=== PATIENT | female | born 1955 | race Caucasian/White ===

== ENCOUNTER 2019-11-09 23:50 | Inpatient (IN) ==
[2019-11-10 00:04] VITALS: BMI 37.0
[2019-11-10] MEDS ORDERED: SOLU-Medrol 125 MG VIAL IVP ONE (01:16)
[2019-11-10] MEDS ORDERED: DUONEB 0.5 MG/3 MG (3 mL) NEB ONE ×4 (01:16→05:42)
--- NOTE | 2019-11-10 01:16 | DR.GENAD ---
HPI - PCP Primary Care Physician: SAVAGE SELF - Complaint/Symptoms Chief Complaint Doctors Comments: Patient is complaining of problems breathing with a cold, cough, wheezing with SOB for the past four weeks getting progressively worst. States she has been taking inhalers and nebulizers at home without improvement. She is a patient of Dr. Self in [place]. States she smokes one pack cigarettes daily but denies alcohol or drug usage. She has been having xiphoid chest pain that is sharp, non-radiating. she denies diarrhea, dysuria, hematuria or [place]. She has a nebulizer and inhaler at home but states she do not have home oxygen. She is not a diabetic. Chief Complaint:: COUGH - NONPRODUCTIVE; SHORTNESS OF BREATH; PATIENT HAS BEEN TAKING CEFDINIR PER PCP WITHOUT RELIEF; PATIENT IS A SMOKER AND HAS HX OF COPD - Nurses notes reviewed Nurses Notes Review: Yes - Source History Provided: Patient - Mode of Arrival Mode of Arrival: Ambulatory - Timing Onset of Chief Complaint: 11/04/19 Came on: Gradually - Duration Duration: Intermittent How lon Duration: Weeks - Location Location: xiphoid chest pain - Severity Severity: Moderate - Modifying Factors Worsens:: cough Improves:: nothing PMH - PMH Past Medical History: Yes Past Medical History: Anxiety, COPD, Coronary Artery Disease Past Medical History Comment: A-FIB Past Surgical History: No - Family History History of Family Medical Conditions: No Family Medical History: Cancer, Heart Failure, Hypertension - Social History Alcohol Use: None Do you use any recreational Drugs:: No Lives With: Spouse Lives Where: Home - infectious screening In the last 2 months have you had wt loss of >10#?: NO Have you had fever, night sweats or hemotysis?: No Have you traveled outside the country in the last 6 months?: No Isolation: Standard ROS - Review of Systems Constitutional: No Symptoms Reported, Weakness Eyes: No Symptoms Reported ENTM: No Symptoms Reported Respiratoy: Productive Cough, Short of Breath, Wheezing Cardiovascular: No Symptoms Reported, Chest Pain. negative: See HPI, Edema, Palpitations, Syncope, Cyanosis, Skin Mottling, Other Gastrointestinal/Abdominal: No Symptoms Reported. negative: See HPI, Abdominal Pain, Constipation, Diarrhea, Nausea, Vomiting, Food Intolerance, Other Genitourinary: No Symptoms Reported Neurological: No Symptoms Reported Musculoskeletal: No Symptoms Reported Integumentary: No Symptoms Reported Hematologic/Lymphatic: No Symptoms Reported Endocrine: No Symptoms Reported Psychiatric: No Symptoms Reported. negative: See HPI, Anxiety, Depression, Hallucinations, Excessive crying, Suicidal, Other PE - General Limitations: No Limitations General Appearance: Alert, In Distress (moderate) - Head Head Exam: Normal Inspection, Atraumatic, Normocephalic - Eyes Eye exam: Normal Appearance, PERRL, EOMI. negative: Scleral Icterus, Conjunctival Injection, Nystagmus, Miosis, Mydrasis, Periorbital Swelling, Periorbital Tenderness, Other - ENT ENT Exam: Normal Exam, Normal Oropharynx, Normal External Ear Exam, Mucous Membranes Moist, TM's Normal Bilaterally External Ear Exam: Normal External Inspection TM/Canal Exam: Bilateral Normal Nose Exam: Normal Nose Exam Mouth Exam: Normal Inspection. negative: Drooling, Trismus, Lip Swelling, Tongue Elevation, Tongue Swelling, Laceration, Other Throat Exam: Normal Inspection. negative: Tonsillar Erythema, Tonsillomegaly, Tonsillar Exudate, R Peritonsillar Mass, L Peritonsillar Mass, Muffled Voice, Other - Neck Neck Exam: Normal Inspection, Full ROM, Trachea Midline - Chest Chest Inspection: Normal Inspection, Symmetric Chest Wall Rise. negative: Tenderness, Rash, Abscess, Other - Respiratory Respiratory Exam: Prolonged Expiratory Phase Respiratory Exam: Bilateral Wheezing, Left Rales - Cardiovascular Cardiovascular Exam: Regular Rate, Normal Rhythm, Normal Heart Sounds, Systolic Murmur - Abdominal Exam Abdominal Exam: Normal Inspection, Normal Bowel Sounds, Soft. negative: Distention, Tenderness, Guarding, Rebound, Rigidity, Dimnished Bowel Sounds, Hyperactive Bowel Sounds, Hypoactive Bowel Sounds, Organomegaly, Trauma, Incision, Ascites, Mass, Bruit, Pulsatile Mass, Hernia, Other Abdominal Tenderness: negative: RUQ, RLQ, LUQ, LLQ, Epigastrium, Suprapubic, Diffuse, Mild, Moderate, Severe, Other - Extremities Extremities Exam: Normal Inspection, Full ROM, Normal Capillary Refill. negative: Tenderness, Edema, Joint Swelling, Calf Tenderness, Other - Back Back Exam: Normal Inspection, Full ROM. negative: Tenderness, (R) CVA Tenderness, (L) CVA Tenderness, Muscle Spasm, Paraspinal Tenderness, Vertebral Tenderness, Rashes, (R) Sciatic Notch Tenderness, (L) Sciatic Notch Tendern, (R) Straight Leg Raise, (L) Straight Leg Raise, Other - Neurologic Neurological Exam: Alert, Oriented X3, CN II-XII Intact, Normal Gait, Reflexes Normal - Psychiatric Psychiatric Exam: Normal Affect, Normal Mood. negative: Depressed, Agitated, Anxious, Flat Affect, Manic, Homicidal Ideation, Suicidal Ideation, Other - Skin Skin Exam: Warm, Dry, Intact, Normal Color. negative: Rash, Cyanosis, D iaphoresis, Erythema, Pallor, Mottled, Other - Vital Signs Vitals: Temperature 98.2 F Pulse Rate [Left Brachial] 70 Pulse Rate 68 Respiratory Rate 18 Blood Pressure [Left Arm] 124/58 Blood Pressure 124/58 O2 Sat by Pulse Oximetry 91 ROR - Labs Reviewed Laboratory Results Reviewed?: Yes (All labs and x-ray results reviewed and discussed with patient) Result Diagrams: 11/10/19 01:29 11/10/19 01: - XRAY XRAY Interpreted by: Radiologist (CXR: Mild bronchitis with COPD and cardiomegaly) - EKG Rate: 64 Walls: Normal Rhythm: NSR Block: None Hypertrophy: None ST: Old, Ant, Infarct - Labs Reviewed Laboratory: WBC 15.6 X10^3/uL (3.6-10.0) H 11/10/19 01: RBC 4.91 X10^6/uL (3.5-5.4) 11/10/19 01: Hgb 13.2 g/dL (12.0-16.0) 11/10/19 01: Hct 40.2 % (36.0-47.0) 11/10/19 01: MCV 81.9 fL (80.0-100.0) 11/10/19 01: MCH 27.0 pg (27.0-34.0) 11/10/19 01: MCHC 32.9 g/dL (33.0-35.0) L 11/10/19: RDW 15.1 % (11.6-16.5) 11/10/19 01: Plt Count 246 X10^3/uL (150.0-450.0) 11/10/19 01: MPV 9.1 fL (7.4-11.0) 11/10/19 01: Neut % (Auto) 77.7 % (42.0-75.0) H 11/10/19 01: Lymph % (Auto) 17.6 % (21.0-51.0) L 11/10/19 01: [place] % (Auto) 3.2 % (0.0-13.0) 11/10/19 01: Eos % (Auto) 0.7 % (0.9-2.9) L 11/10/19 01: Baso % (Auto) 0.8 % (0.2-1.0) 11/10/19 01: Neut # (Auto) 12.1 x10^3/uL (2.2-4.8) H 11/10/19 01: Lymph # (Auto) 2.8 X10^3/uL (1.3-2.9) 11/10/19 01: [place] # (Auto) 0.5 x10^3/uL (0.3-0.8) 11/10/19 01: Eos # (Auto) 0.1 x10^3/uL (0.0-0.2) 11/10/19 01: Baso # (Auto) 0.1 X10^3/uL (0.0-0.1) 11/10/19 01: Absolute Nucleated RBC 0.0 /100WBC 11/10/19 01: PT 12.1 SECONDS (11.8-14.3) 11/10/19 01: INR Target Range - 11/10/19 01: INR 0.93 (0.8-1.3) 11/10/19 01: APTT 29.7 SECONDS (22.9-36.5) 11/10/19 01: PTT Comment - 11/10/19 01: D-Dimer < 100 ng/mL (0-400) 11/10/19 01: Sodium 140 mmol/L (136-145) 11/10/19 01: Corrected Sodium 140 mmol/L (136-145) 11/10/19 01: Potassium 3.6 mmol/L (3.5-5.1) 11/10/19 01: Chloride 105 mmol/L (98-107) 11/10/19 01: Carbon Dioxide 26.2 mmol/L (21-32) 11/10/19 01:29 BUN 18 mg/dL (7-18) 11/10/19 01:29 Creatinine 1.51 mg/dL (0.55-1.02) H 11/10/19 01:29 Est GFR (MDRD) Af Amer 45 (>60) L 11/10/19 01:29 Est GFR (MDRD) Non-Af 37 (>60) L 11/10/19 01:29 Glucose 119 mg/dL (65-99) H 11/10/19 01:29 Calcium 9.8 mg/dL (8.5-10.1) 11/10/19 01:29 Corrected Calcium TNP 11/10/19 01:29 Magnesium 1.9 mg/dL (1.7-2.9) 11/10/19 01:29 Total Bilirubin 0.20 mg/dL (0.2-1.0) 11/10/19 01:29 AST 13 Units/L (15-37) L 11/10/19 01:29 ALT 22 Units/L (12-78) 11/10/19 01:29 Alkaline Phosphatase 120 Units/L (46-116) H 11/10/19 01:29 Creatine Kinase 49 Units/L (26-192) 11/10/19 01:29 CK-MB (CK-2) 1.3 ng/mL (0-4.0) 11/10/19 01:29 CK/CKMB % Calc 2.7 % (<4) 11/10/19 01:29 Troponin I < 0.02 ng/mL (0-1.5) 11/10/19 01:29 Total Protein 7.1 g/dL (6.4-8.2) 11/10/19 01:29 Albumin 3.7 g/dL (3.4-5.0) 11/10/19 01:29 Globulin 3.4 g/dL (2.5-4.5) 11/10/19 01:29 Albumin/Globulin Ratio 1.1 Ratio (1.1-2.1) 11/10/19 01:29 Opioid - Opioid Risk Tool Total: 0 Total Score Risk Category: Low Risk - Diagnosis Discharge Problem: COPD with acute exacerbation, Cardiomegaly, Hypoxemia requiring supplemental oxygen, Hyperglycemia Bronchitis, acute Qualifiers: Bronchitis organism: other organism Qualified Code(s): J20.8 - Acute bronchitis due to other specified organisms Chronic kidney disease (CKD) Qualifiers: Chronic kidney disease stage: stage 3 (moderate) Qualified Code(s): N18.3 - Chronic kidney disease, stage 3 (moderate) - Discharge Plan Disposition: 09 ADMITTED INPATIENT Condition: Stable - Follow ups/Referrals Follow ups/Referrals: SAVAGE SELF [Primary Care Provider] - 3 days - Instructions
[2019-11-10] MEDS ORDERED: LEVSIN/MAALOX/LIDOC VISC PO ONE (01:17)
[2019-11-10] MEDS ORDERED: NS 1000 ML 1,000 ML ONE (01:22)
[2019-11-10] MEDS ORDERED: LEVSIN/MAALOX/LIDOC VISC ONE (01:22)
[2019-11-10] MEDS ORDERED: SOLU-Medrol 125 MG VIAL ONE (01:22)
[2019-11-10] MEDS: NS 1000 ML 1,000 ML IV SCH ×3 (01:36→23:05)
[2019-11-10 01:37] LABS: BASOPHILS # (AUTO) 0.1 X10^3/uL (0.0-0.1); BASOPHILS % (AUTO) 0.8 % (0.2-1.0); EOSINOPHILS # (AUTO) 0.1 x10^3/uL (0.0-0.2); EOSINOPHILS % (AUTO) 0.7 % (0.9-2.9); HEMATOCRIT 40.2 % (36.0-47.0); HEMOGLOBIN 13.2 g/dL (12.0-16.0); LYMPHOCYTES # (AUTO) 2.8 X10^3/uL (1.3-2.9); LYMPHOCYTES % (AUTO) 17.6 % (21.0-51.0); MEAN CORPUSCULAR HGB CONC 32.9 g/dL (33.0-35.0); MEAN CORPUSCULAR VOLUME 81.9 fL (80.0-100.0); MEAN PLATELET VOLUME 9.1 fL (7.4-11.0); MONOCYTES # (AUTO) 0.5 x10^3/uL (0.3-0.8); MONOCYTES % (AUTO) 3.2 % (0.0-13.0); NEUTROPHILS # (AUTO) 12.1 x10^3/uL (2.2-4.8); NEUTROPHILS % (AUTO) 77.7 % (42.0-75.0); PLATELET COUNT 246 X10^3/uL (150.0-450.0); RED BLOOD COUNT 4.91 X10^6/uL (3.5-5.4); RED CELL DISTRIBUTION WIDTH 15.1 % (11.6-16.5); WHITE BLOOD COUNT 15.6 X10^3/uL (3.6-10.0)
[2019-11-10 01:53] LABS: BLOOD UREA NITROGEN 18 mg/dL (7-18); CALCIUM 9.8 mg/dL (8.5-10.1); CARBON DIOXIDE 26.2 mmol/L (21-32); CHLORIDE 105 mmol/L (98-107); COR NA(FOR HYPERGLY) 140 mmol/L (136-145); CREATININE 1.51 mg/dL (0.55-1.02); SODIUM 140 mmol/L (136-145); TROPONIN I < 0.02 ng/mL (0-1.5); eGFR NON BLACK RACES 37 (>60)
[2019-11-10 01:56] LABS: ALANINE AMINOTRANSFERASE 22 Units/L (12-78); ALBUMIN 3.7 g/dL (3.4-5.0); ALKALINE PHOSPHATASE 120 Units/L (46-116); ASPARTATE AMINO TRANSFERASE 13 Units/L (15-37); CKMB % 2.7 % (<4); CREATINE KINASE 49 Units/L (26-192); CREATINE KINASE MB 1.3 ng/mL (0-4.0); MAGNESIUM 1.9 mg/dL (1.7-2.9); TOTAL PROTEIN 7.1 g/dL (6.4-8.2)
--- NOTE | 2019-11-10 04:31 | RAD ---
Chest AP portableIndication: Chest pain nonproductive coughFINDINGSThere is no pneumothorax. Lungs are mildly hyperinflated. Heart size is upper limits of normal. Patchy pulmonary opacities/increased interstitial markings suggested.IMPRESSIONMild bronchitis possible, with COPD and cardiomegaly noted.Electronically signed by: JUAN CARLOS ALBERT (Nov 10, 2019 04:30:40)
[2019-11-10] MEDS ORDERED: ROCEPHIN VIAL 1 GRAM 1 G in NS 100 ML IV + SPIKE MINIBAG* 100 ML IV ONE (05:27)
[2019-11-10] MEDS ORDERED: NS 100 ML IV + SPIKE MINIBAG* 0 ML IV ONE (05:41)
[2019-11-10] MEDS ORDERED: ROCEPHIN VIAL 1 GRAM ONE ×2 (05:41→05:48)
[2019-11-10] MEDS ORDERED: SALINE 3% 15 ML NEB TX ONE (05:43)
[2019-11-10] MEDS ORDERED: NS 100 ML IV + SPIKE MINIBAG* 100 ML IV ONE (05:47)
[2019-11-10] MEDS ORDERED: SALINE 3% 15 ML NEB TX NEB ONE (05:47)
[2019-11-10] MEDS: ROCEPHIN VIAL 1 GRAM 1 G in NS 100 ML IV + SPIKE MINIBAG* 100 ML IV SCH ×2 (06:01→11:00)
[2019-11-10] MEDS ORDERED: PREVNAR 13 IM ONE (07:49)
[2019-11-10] MEDS ORDERED: TYLENOL 325 MG TAB PO PRN (08:19)
[2019-11-10] MEDS ORDERED: TYLENOL 325 MG TAB PO ONE (08:20)
[2019-11-10] MEDS: DUONEB 0.5 MG/3 MG (3 mL) NEB SCH ×4 (09:20→20:10)
--- NOTE | 2019-11-10 12:12 | DR.H&P ---
H&P History & Physical for Day of: H&P Date: 11/10/19 Chief Complaint Chief Complaint: Cough, Shortness of breath Allergies Allergies Allergy/AdvReac Type Severity Reaction Status Date / Time levofloxacin Allergy Verified 11/10/19 00:04 Penicillins Allergy Verified 11/10/19 00:05 History of Present Illness History of Present Illness: Pt is a 64 yo f pmhx COPD presenting with worsening productive cough(white sputum), wheezing, and shortness of breath for the past month. She states that she does have inhalers and nebulizers at home that she has been using without improvement. She is a smoker and does not require home oxygen. In the ED, pulse ox at 87%. Initial imaging/labs: CXR:Mild bronchitis possible, with COPD and cardiomegaly noted. Wbc 15.6, Trop neg, Ekg NSR, Cr 1.51. She was started on IVF, Bronchodilators, Solumedrol, Rocephin + Azithromycin, and placed on supplemental oxygen. Will continue to monitor and follow up labs in the morning. Past Medical History Past Medical History: Anxiety, COPD and Coronary Artery Disease Past Surgical History Surgical History: Other Family History Family Medical History: Cancer and Coronary Artery Disease Social History Does patient currently use any type of tobacco product: Yes Have you used tobacco products in the last 12 months: Yes Type of Tobacco Use: Cigarettes Does any household member use tobacco: Yes Alcohol Use: None Drug Use: Prescription Drugs Medications Home Medications: levofloxacin Allergy (Verified 11/10/19 00:04) Penicillins Allergy (Verified 11/10/19 00:05) CONTINUE taking the following medications diltiazem HCl 120 mg PO DAILY 11/10/19 [History] ergocalciferol (vitamin D2) 1,250 mcg PO QWEEK 11/10/19 [History] escitalopram oxalate 20 mg PO DAILY 11/10/19 [History] lorazepam 0.5 mg PO TID PRN 11/10/19 [History] metoprolol succinate 25 mg PO BID 11/10/19 [History] pantoprazole 40 mg PO QAM 11/10/19 [History] rosuvastatin [Crestor] 40 mg PO QHS 11/10/19 [History] valsartan 80 mg PO BID 11/10/19 [History] zolpidem [Ambien] 10 mg PO QHS PRN 11/10/19 [History] Labs Result Diagrams: 11/10/19 01:29 11/10/19 01:29 Labs: 11/10/19 05:53 Sputum - Expectorated Sputum - Final Laboratory WBC 15.6 X10^3/uL (3.6-10.0) H 11/10/19 01: RBC 4.91 X10^6/uL (3.5-5.4) 11/10/19 01: Hgb 13.2 g/dL (12.0-16.0) 11/10/19 01: Hct 40.2 % (36.0-47.0) 11/10/19 01: MCV 81.9 fL (80.0-100.0) 11/10/19 01: MCH 27.0 pg (27.0-34.0) 11/10/19 01: MCHC 32.9 g/dL (33.0-35.0) L 11/10/19 01: RDW 15.1 % (11.6-16.5) 11/10/19 01: Plt Count 246 X10^3/uL (150.0-450.0) 11/10/19 01: MPV 9.1 fL (7.4-11.0) 11/10/19 01: Neut % (Auto) 77.7 % (42.0-75.0) H 11/10/19 01: Lymph % (Auto) 17.6 % (21.0-51.0) L 11/10/19 01: [place] % (Auto) 3.2 % (0.0-13.0) 11/10/19 01: Eos % (Auto) 0.7 % (0.9-2.9) L 11/10/19 01: Baso % (Auto) 0.8 % (0.2-1.0) 11/10/19 01: Neut # (Auto) 12.1 x10^3/uL (2.2-4.8) H 11/10/19 01: Lymph # (Auto) 2.8 X10^3/uL (1.3-2.9) 11/10/19 01: [place] # (Auto) 0.5 x10^3/uL (0.3-0.8) 11/10/19 01: Eos # (Auto) 0.1 x10^3/uL (0.0-0.2) 11/10/19 01: Baso # (Auto) 0.1 X10^3/uL (0.0-0.1) 11/10/19 01: Absolute Nucleated RBC 0.0 /100WBC 11/10/19 01: PT 12.1 SECONDS (11.8-14.3) 11/10/19 01: INR Target Range - 11/10/19 01: INR 0.93 (0.8-1.3) 11/10/19 01: APTT 29.7 SECONDS (22.9-36.5) 11/10/19 01: PTT Comment - 11/10/19 01: D-Dimer < 100 ng/mL (0-400) 11/10/19 01: Sodium 140 mmol/L (136-145) 11/10/19 01:29 Corrected Sodium 140 mmol/L (136-145) 11/10/19 01: Potassium 3.6 mmol/L (3.5-5.1) 11/10/19 01: Chloride 105 mmol/L (98-107) 11/10/19 01: Carbon Dioxide 26.2 mmol/L (21-32) 11/10/19 01:29 BUN 18 mg/dL (7-18) 11/10/19 01: Creatinine 1.51 mg/dL (0.55-1.02) H 11/10/19 01:29 Est GFR (MDRD) Af Amer 45 (>60) L 11/10/19 01:29 Est GFR (MDRD) Non-Af 37 (>60) L 11/10/19 01: Glucose 119 mg/dL (65-99) H 11/10/19 01: Calcium 9.8 mg/dL (8.5-10.1) 11/10/19 01:29 Corrected Calcium TNP 11/10/19 01: Magnesium 1.9 mg/dL (1.7-2.9) 11/10/19 01: Total Bilirubin 0.20 mg/dL (0.2-1.0) 11/10/19 01:29 AST 13 Units/L (15-37) L 11/10/19 01:29 ALT 22 Units/L (12-78) 11/10/19 01:29 Alkaline Phosphatase 120 Units/L (46-116) H 11/10/19 01:29 Creatine Kinase 49 Units/L (26-192) 11/10/19 01:29 CK-MB (CK-2) 1.3 ng/mL (0-4.0) 11/10/19 01:29 CK/CKMB % Calc 2.7 % (<4) 11/10/19 01:29 Troponin I < 0.02 ng/mL (0-1.5) 11/10/19 01:29 Total Protein 7.1 g/dL (6.4-8.2) 11/10/19 01:29 Albumin 3.7 g/dL (3.4-5.0) 11/10/19 01:29 Globulin 3.4 g/dL (2.5-4.5) 11/10/19 01:29 Albumin/Globulin Ratio 1.1 Ratio (1.1-2.1) 11/10/19 01:29 Review of Systems Constitutional: Chills and Weakness; denies Fever Eyes: No Symptoms Reported ENT: No Symptoms Reported Respiratory: Cough, Shortness of Breath, Sputum and Wheezing Cardiovascular: No Symptoms Reported Gastrointestinal: No Symptoms Reported Genitourinary: No Symptoms Reported Musculoskeletal: No Symptoms Reported Skin: No Symptoms Reported Neurological: No Symptoms Reported Physical Exam Vital Signs: Temperature 97.5 F Pulse Rate [Left Brachial] 82 Pulse Rate 88 Respiratory Rate 21 Blood Pressure [Left Arm] 140/62 Blood Pressure 124/58 O2 Sat by Pulse Oximetry 94 Oriented: Normal Eyes: Normal Ear: Normal Nose: Normal Throat: Normal Respiratory: Diminished Throughout and Wheezes Throughout Cardiovascular: Normal Auscultation: Bowel Sounds: Normal Palpation: Normal Tenderness: Normal Skin: Normal Musculoskeletal: Normal Psychiatric: Normal Mood Description: Calm Speech Pattern: Clear Assessment/Plan (1) COPD with acute exacerbation: Status: Acute Plan: IV steroids, Rocephin+Azithromycin, Bronchodilators. (2) Bronchitis, acute: Qualifiers: Bronchitis organism: other organism Qualified Code(s): J20.8 - Acute bronchitis due to other specified organisms Status: Acute (3) Hypoxemia requiring supplemental oxygen: Status: Acute (4) Chronic kidney disease (CKD): Qualifiers: Chronic kidney disease stage: stage 3 (moderate) Qualified Code(s): N18.3 - Chronic kidney disease, stage 3 (moderate) Status: Acute Plan: Cr:1.51, continue IVF Review H&P Reviewed: Yes Patient was examined?: Yes
[2019-11-10] MEDS ORDERED: LEXAPRO ONE (14:57)
[2019-11-10] MEDS: ZITHROMAX TAB 250 MG PO SCH (15:35)
[2019-11-10] MEDS: LEXAPRO PO SCH (15:35)
[2019-11-10] MEDS: PROTONIX TAB 40 MG PO SCH (15:37)
[2019-11-10] MEDS: TOPROL XL PO SCH ×3 (15:37→20:34)
[2019-11-10] MEDS: DIOVAN TAB 160 MG PO SCH ×2 (15:39→21:05)
[2019-11-10] MEDS: CARDIZEM CD 120 MG 24-HR PO SCH (15:39)
[2019-11-10] MEDS: CRESTOR TAB 10 MG PO SCH (20:32)
[2019-11-10] MEDS: ATIVAN TAB 0.5 MG PO PRN (20:32)
[2019-11-10] MEDS: AMBIEN PO PRN (21:14)
[2019-11-11] MEDS: DUONEB 0.5 MG/3 MG (3 mL) NEB SCH ×6 (01:08→20:48)
[2019-11-11 05:47] LABS: BASOPHILS % (AUTO) 0.1 % (0.2-1.0); HEMATOCRIT 36.1 % (36.0-47.0); HEMOGLOBIN 11.9 g/dL (12.0-16.0); LYMPHOCYTES # (AUTO) 1.9 X10^3/uL (1.3-2.9); LYMPHOCYTES % (AUTO) 9.2 % (21.0-51.0); MEAN CORPUSCULAR HEMOGLOBIN 27.2 pg (27.0-34.0); MEAN CORPUSCULAR HGB CONC 32.9 g/dL (33.0-35.0); MEAN CORPUSCULAR VOLUME 82.8 fL (80.0-100.0); MEAN PLATELET VOLUME 9.8 fL (7.4-11.0); MONOCYTES # (AUTO) 1.1 x10^3/uL (0.3-0.8); NEUTROPHILS # (AUTO) 18.2 x10^3/uL (2.2-4.8); NEUTROPHILS % (AUTO) 85.7 % (42.0-75.0); PLATELET COUNT 237 X10^3/uL (150.0-450.0); RED BLOOD COUNT 4.36 X10^6/uL (3.5-5.4); RED CELL DISTRIBUTION WIDTH 15.3 % (11.6-16.5); WHITE BLOOD COUNT 21.2 X10^3/uL (3.6-10.0)
[2019-11-11 05:49] LABS: BLOOD UREA NITROGEN 18 mg/dL (7-18); CALCIUM 9.7 mg/dL (8.5-10.1); CARBON DIOXIDE 23.4 mmol/L (21-32); CHLORIDE 107 mmol/L (98-107); COR NA(FOR HYPERGLY) 141 mmol/L (136-145); CREATININE 1.02 mg/dL (0.55-1.02); SODIUM 140 mmol/L (136-145); eGFR NON BLACK RACES 58 (>60)
[2019-11-11 06:27] LABS: PLATELET MORPHOLOGY COMMENT NORMAL (NORMAL)
[2019-11-11] MEDS ORDERED: LEXAPRO ONE (08:59)
[2019-11-11] MEDS ORDERED: SOLU-Medrol 40 MG VIAL IVP SCH (09:00)
[2019-11-11] MEDS: PROTONIX TAB 40 MG PO SCH (09:31)
[2019-11-11] MEDS: TOPROL XL PO SCH ×2 (09:31→20:54)
[2019-11-11] MEDS: CARDIZEM CD 120 MG 24-HR PO SCH (09:31)
[2019-11-11] MEDS: LEXAPRO PO SCH (09:32)
[2019-11-11] MEDS: ZITHROMAX TAB 250 MG PO SCH (09:32)
[2019-11-11] MEDS: DIOVAN TAB 160 MG PO SCH ×2 (09:32→20:54)
[2019-11-11] MEDS: ROCEPHIN VIAL 1 GRAM 1 G in NS 100 ML IV + SPIKE MINIBAG* 100 ML IV SCH ×2 (09:34→19:25)
--- NOTE | 2019-11-11 10:34 | PCM.PROG ---
Progress Note Progress Note for Day of Date of Exam: 11/11/19 Subjective Subjective: Pt is a 64 yo f pmhx admitted for COPD exacerbation. She is a smoker and does not require home oxygen. This morning she feels a little better. Wbc 15.6>21, Cr 1.51>1.02. She on scheduled IV steroids and her renal function has improved with IVF. SputumCx:NGTD, BloodCx:pending. Continue Bronchodilators, Solumedrol, Rocephin + Azithromycin, supplemental oxygen. Will have pt evaluated for home oxygen. Continue to monitor and follow up labs in the morning. Past Medical Family Social History Past Med/Fam/Surg Hx: No changes since H&P Allergies: Allergies levofloxacin Allergy (Verified 11/10/19 00:04) Penicillins Allergy (Verified 11/10/19 00:05) Review of Systems ROS: No change since H&P Vital Signs and I&O's Vital Signs: Temperature 98.1 F Pulse Rate [Left Brachial] 75 Pulse Rate 68 Respiratory Rate 20 Blood Pressure [Left Arm] 164/72 Blood Pressure 124/58 O2 Sat by Pulse Oximetry 96 Intake and Output: Intake & Output 11/08/19 11/09/19 11/10/19 11/11/19 22:59 22:59 23:59 23:59 Intake Total 0 / 0 Balance 0 / 0 Physical Exam Oriented: Normal Eyes: Normal Ear: Normal Nose: Normal Throat: Normal Respiratory: Normal Cardiovascular: Normal : Normal Auscultation: Bowel Sounds: Normal Tenderness: Normal Skin: Normal Musculoskeletal: Normal Psychiatric: Normal Mood Description: Calm Speech Pattern: Clear and Appropriate Laboratory and Diagnostics Result Diagrams: 11/11/19 05:22 11/11/19 05:22 Labs: 11/10/19 05:53 Sputum - Expectorated Sputum Sputum Culture - Preliminary 11/10/19 05:53 Sputum - Expectorated Sputum - Final Laboratory WBC 21.2 X10^3/uL (3.6-10.0) H 11/11/19 05:22 RBC 4.36 X10^6/uL (3.5-5.4) 11/11/19 05:22 Hgb 11.9 g/dL (12.0-16.0) L 11/11/19 05:22 Hct 36.1 % (36.0-47.0) 11/11/19 05:22 MCV 82.8 fL (80.0-100.0) 11/11/19 05:22 MCH 27.2 pg (27.0-34.0) 11/11/19 05:22 MCHC 32.9 g/dL (33.0-35.0) L 11/11/19 05:22 RDW 15.3 % (11.6-16.5) 11/11/19 05:22 Plt Count 237 X10^3/uL (150.0-450.0) 11/11/19 05:22 Plt Count Comment Adequate (ADEQUATE) 11/11/19 05:22 MPV 9.8 fL (7.4-11.0) 11/11/19 05:22 Neut % (Auto) 85.7 % (42.0-75.0) H 11/11/19 05:22 Lymph % (Auto) 9.2 % (21.0-51.0) L 11/11/19 05:22 [place] % (Auto) 5.0 % (0.0-13.0) 11/11/19 05:22 Eos % (Auto) 0.0 % (0.9-2.9) L 11/11/19 05:22 Baso % (Auto) 0.1 % (0.2-1.0) L 11/11/19 05:22 Neut # (Auto) 18.2 x10^3/uL (2.2-4.8) H 11/11/19 05:22 Lymph # (Auto) 1.9 X10^3/uL (1.3-2.9) 11/11/19 05:22 [place] # (Auto) 1.1 x10^3/uL (0.3-0.8) H 11/11/19 05:22 Eos # (Auto) 0.0 x10^3/uL (0.0-0.2) 11/11/19 05:22 Baso # (Auto) 0.0 X10^3/uL (0.0-0.1) 11/11/19 05:22 Absolute Nucleated RBC 0.0 /100WBC 11/11/19 05:22 Total Counted 100 11/11/19 05:22 Neutrophils % (Manual) 85 % (39-76) H 11/11/19 05:22 Lymphocytes % (Manual) 8 % (13-43) L 11/11/19 05:22 Monocytes % (Manual) 7 % (4-9) 11/11/19 05:22 Plt Morphology Comment Normal (NORMAL) 11/11/19 05:22 RBC Morphology Normal (NORMAL) 11/11/19 05:22 PT 12.1 SECONDS (11.8-14.3) 11/10/19 01:29 INR Target Range - 11/10/19 01: INR 0.93 (0.8-1.3) 11/10/19 01:29 APTT 29.7 SECONDS (22.9-36.5) 11/10/19 01:29 PTT Comment - 11/10/19 01:29 D-Dimer < 100 ng/mL (0-400) 11/10/19 01:29 Sodium 140 mmol/L (136-145) 11/11/19 05:22 Corrected Sodium 141 mmol/L (136-145) 11/11/19 05:22 Potassium 4.4 mmol/L (3.5-5.1) 11/11/19 05:22 Chloride 107 mmol/L (98-107) 11/11/19 05:22 Carbon Dioxide 23.4 mmol/L (21-32) 11/11/19 05:22 BUN 18 mg/dL (7-18) 11/11/19 05:22 Creatinine 1.02 mg/dL (0.55-1.02) 11/11/19 05:22 Est GFR (MDRD) Af Amer > 60 (>60) 11/11/19 05:22 Est GFR (MDRD) Non-Af 58 (>60) L 11/11/19 05:22 Glucose 129 mg/dL (65-99) H 11/11/19 05:22 Calcium 9.7 mg/dL (8.5-10.1) 11/11/19 05:22 Corrected Calcium TNP 11/10/19 01:29 Magnesium 1.9 mg/dL (1.7-2.9) 11/10/19 01:29 Total Bilirubin 0.20 mg/dL (0.2-1.0) 11/10/19 01:29 AST 13 Units/L (15-37) L 11/10/19 01:29 ALT 22 Units/L (12-78) 11/10/19 01:29 Alkaline Phosphatase 120 Units/L (46-116) H 11/10/19 01:29 Creatine Kinase 49 Units/L (26-192) 11/10/19 01:29 CK-MB (CK-2) 1.3 ng/mL (0-4.0) 11/10/19 01:29 CK/CKMB % Calc 2.7 % (<4) 11/10/19 01:29 Troponin I < 0.02 ng/mL (0-1.5) 11/10/19 01:29 Total Protein 7.1 g/dL (6.4-8.2) 11/10/19 01:29 Albumin 3.7 g/dL (3.4-5.0) 11/10/19 01:29 Globulin 3.4 g/dL (2.5-4.5) 11/10/19 01:29 Albumin/Globulin Ratio 1.1 Ratio (1.1-2.1) 11/10/19 01:29 Plan (1) COPD with acute exacerbation: Status: Acute Plan: IV steroids, Rocephin+Azithromycin, Bronchodilators. (2) Bronchitis, acute: Status: Acute Qualifiers: Bronchitis organism: other organism Qualified Code(s): J20.8 - Acute bronchitis due to other specified organisms (3) Hypoxemia requiring supplemental oxygen: Status: Acute (4) Chronic kidney disease (CKD): Status: Acute Qualifiers: Chronic kidney disease stage: stage 3 (moderate) Qualified Code(s): N18.3 - Chronic kidney disease, stage 3 (moderate) Plan: Improved. Cr:1.51>1.02, continue IVF
[2019-11-11] MEDS ORDERED: PREVNAR 13 IM ONE (14:09)
[2019-11-11] MEDS: PREDNISONE TAB 20 MG PO SCH (14:14)
[2019-11-11] MEDS: NS 1000 ML 1,000 ML IV SCH ×2 (14:52→15:53)
[2019-11-11] MEDS: LOVENOX INJ 40 MG SYR SC SCH (15:58)
[2019-11-11] MEDS: CRESTOR TAB 10 MG PO SCH (20:54)
[2019-11-11] MEDS: AMBIEN PO PRN (20:56)
[2019-11-11] MEDS: ATIVAN TAB 0.5 MG PO PRN (20:56)
[2019-11-11] MEDS: ROBITUSSIN DM PO PRN (22:24)
[2019-11-12] MEDS: DUONEB 0.5 MG/3 MG (3 mL) NEB SCH ×3 (01:00→08:03)
[2019-11-12] MEDS: NS 1000 ML 1,000 ML IV SCH (01:50)
[2019-11-12 05:55] LABS: BASOPHILS % (AUTO) 0.1 % (0.2-1.0); HEMATOCRIT 33.8 % (36.0-47.0); HEMOGLOBIN 11.3 g/dL (12.0-16.0); LYMPHOCYTES # (AUTO) 1.8 X10^3/uL (1.3-2.9); LYMPHOCYTES % (AUTO) 9.9 % (21.0-51.0); MEAN CORPUSCULAR HEMOGLOBIN 27.8 pg (27.0-34.0); MEAN CORPUSCULAR HGB CONC 33.5 g/dL (33.0-35.0); MEAN CORPUSCULAR VOLUME 82.9 fL (80.0-100.0); MONOCYTES # (AUTO) 0.6 x10^3/uL (0.3-0.8); MONOCYTES % (AUTO) 3.4 % (0.0-13.0); NEUTROPHILS # (AUTO) 15.6 x10^3/uL (2.2-4.8); NEUTROPHILS % (AUTO) 86.6 % (42.0-75.0); PLATELET COUNT 210 X10^3/uL (150.0-450.0); RED BLOOD COUNT 4.08 X10^6/uL (3.5-5.4); RED CELL DISTRIBUTION WIDTH 15.6 % (11.6-16.5)
[2019-11-12 06:25] LABS: ALANINE AMINOTRANSFERASE 26 Units/L (12-78); ALBUMIN 3.2 g/dL (3.4-5.0); ALKALINE PHOSPHATASE 90 Units/L (46-116); ASPARTATE AMINO TRANSFERASE 15 Units/L (15-37); BLOOD UREA NITROGEN 17 mg/dL (7-18); CALCIUM 9.3 mg/dL (8.5-10.1); CARBON DIOXIDE 24.3 mmol/L (21-32); CHLORIDE 108 mmol/L (98-107); COR CA(FOR HYPOALB) 9.9 mg/dL (8.5-10.1); COR NA(FOR HYPERGLY) 142 mmol/L (136-145); CREATININE 0.89 mg/dL (0.55-1.02); SODIUM 141 mmol/L (136-145); TOTAL PROTEIN 6.4 g/dL (6.4-8.2); eGFR NON BLACK RACES > 60 (>60)
[2019-11-12] MEDS ORDERED: LEXAPRO ONE (08:47)
--- NOTE | 2019-11-12 08:52 | W.DIS.FURT ---
Summary of Discharge Discharge Summary of Date Date of Exam: 11/12/19 Admission Date Date of Admission: 11/10/19 Admission Diagnosis Patient Problems (Updated 11/10/19 @ 05:33 by ASTON PEREZ) COPD with acute exacerbation (Acute) J44.1 Bronchitis, acute (Acute) J20.9 Cardiomegaly (Acute) I51.7 Hypoxemia requiring supplemental oxygen (Acute) R09.02, Z99.81 Chronic kidney disease (CKD) (Acute) N18.9 Hyperglycemia (Acute) R73.9 Hospital Course: Pt is a 64 yo f pmhx admitted for COPD exacerbation and CAMELIA. She is a smoker and does not require home oxygen. She was treated w/ scheduled IV steroids, A zithromycin, and bronchodilators. Her renal function improved with IVF. SputumCx:NGTD, BloodCx:NGTD. Pt was doing well on day of discharge, in stable condition, not requiring supplemental O2. Pt evaluated for home oxygen. CM connecting patient with [facility] for respiratory needs. Rx course of prednsione, Azithromycin, Hycodan. Sent rx for duonebs and singulair. Pt instructed to follow up with pcp in 1 week. Vital Signs: Vital Signs (72 hours) 11/09/19 23:59 11/10/19 01:00 11/10/19 01:20 Temperature 98.2 F Pulse Rate 73 79 64 Pulse Rate [Left Brachial] Respiratory Rate 20 20 Blood Pressure 130/64 Blood Pressure [Left Arm] O2 Sat by Pulse Oximetry 92 L 98 94 L 11/10/19 01:34 11/10/19 03:00 11/10/19 04:00 Temperature Pulse Rate 79 81 Pulse Rate [Left Brachial] Respiratory Rate 24 26 H 20 Blood Pressure Blood Pressure [Left Arm] O2 Sat by Pulse Oximetry 88 L 87 L 11/10/19 04:46 11/10/19 04:50 11/10/19 06:00 Temperature Pulse Rate 68 Pulse Rate [Left Brachial] 70 Respiratory Rate 22 18 Blood Pressure 124/58 Blood Pressure [Left Arm] 124/58 O2 Sat by Pulse Oximetry 91 L 91 L 88 L 11/10/19 06:19 11/10/19 07:30 11/10/19 08:24 Temperature 97.5 F L Pulse Rate Pulse Rate [Left Brachial] 91 H 83 Respiratory Rate 24 24 16 Blood Pressure Blood Pressure [Left Arm] 148/67 O2 Sat by Pulse Oximetry 87 L 92 L 11/10/19 09:00 11/10/19 09:20 11/10/19 10:00 Temperature 97.8 F Pulse Rate 84 Pulse Rate [Left Brachial] 82 94 H Respiratory Rate 21 24 Blood Pressure Blood Pressure [Left Arm] 140/62 194/80 O2 Sat by Pulse Oximetry 93 L 95 94 L 11/10/19 12:00 11/10/19 12:04 11/10/19 16:00 Temperature 97.8 F 98.0 F Pulse Rate 88 Pulse Rate [Left Brachial] 86 103 H Respiratory Rate 22 24 Blood Pressure Blood Pressure [Left Arm] 146/65 169/74 O2 Sat by Pulse Oximetry 93 L 94 L 97 11/10/19 16:12 11/10/19 20:00 11/10/19 20:10 Temperature 98.7 F Pulse Rate 102 H 92 H Pulse Rate [Left Brachial] 88 Respiratory Rate 20 Blood Pressure Blood Pressure [Left Arm] 137/63 O2 Sat by Pulse Oximetry 97 98 96 11/11/19 00:00 11/11/19 01:08 11/11/19 04:00 Temperature 98.1 F 98.7 F Pulse Rate 89 Pulse Rate [Left Brachial] 76 88 Respiratory Rate 20 20 Blood Pressure Blood Pressure [Left Arm] 139/65 137/63 O2 Sat by Pulse Oximetry 96 96 98 11/11/19 08:00 11/11/19 09:01 11/11/19 11:59 Temperature 98.1 F Pulse Rate 68 72 Pulse Rate [Left Brachial] 75 Respiratory Rate 20 Blood Pressure Blood Pressure [Left Arm] 164/72 O2 Sat by Pulse Oximetry 97 96 97 11/11/19 12:00 11/11/19 16:00 11/11/19 16:53 Temperature 97.6 F 97.8 F Pulse Rate 67 Pulse Rate [Left Brachial] 78 78 Respiratory Rate 22 20 Blood Pressure Blood Pressure [Left Arm] 173/72 122/68 O2 Sat by Pulse Oximetry 93 L 94 L 97 11/11/19 20:00 11/11/19 20:56 11/12/19 00:00 Temperature 98.7 F 98.5 F Pulse Rate 70 Pulse Rate [Left Brachial] 72 76 Respiratory Rate 18 22 Blood Pressure Blood Pressure [Left Arm] 136/62 132/58 O2 Sat by Pulse Oximetry 94 L 98 99 11/12/19 04:00 11/12/19 08:03 Temperature 98.2 F Pulse Rate 65 Pulse Rate [Left Brachial] 79 Respiratory Rate 22 Blood Pressure Blood Pressure [Left Arm] 179/73 O2 Sat by Pulse Oximetry 96 96 Labs: Laboratory Last Values WBC 18.0 X10^3/uL (3.6-10.0) H 11/12/19 05:23 RBC 4.08 X10^6/uL (3.5-5.4) 11/12/19 05:23 Hgb 11.3 g/dL (12.0-16.0) L 11/12/19 05:23 Hct 33.8 % (36.0-47.0) L 11/12/19 05:23 MCV 82.9 fL (80.0-100.0) 11/12/19 05:23 MCH 27.8 pg (27.0-34.0) 11/12/19 05:23 MCHC 33.5 g/dL (33.0-35.0) 11/12/19 05:23 RDW 15.6 % (11.6-16.5) 11/12/19 05:23 Plt Count 210 X10^3/uL (150.0-450.0) 11/12/19 05:23 Plt Count Comment Adequate (ADEQUATE) 11/11/19 05:22 MPV 10.0 fL (7.4-11.0) 11/12/19 05:23 Neut % (Auto) 86.6 % (42.0-75.0) H 11/12/19 05:23 Lymph % (Auto) 9.9 % (21.0-51.0) L 11/12/19 05:23 [place] % (Auto) 3.4 % (0.0-13.0) 11/12/19 05:23 Eos % (Auto) 0.0 % (0.9-2.9) L 11/12/19 05:23 Baso % (Auto) 0.1 % (0.2-1.0) L 11/12/19 05:23 Neut # (Auto) 15.6 x10^3/uL (2.2-4.8) H 11/12/19 05:23 Lymph # (Auto) 1.8 X10^3/uL (1.3-2.9) 11/12/19 05:23 [place] # (Auto) 0.6 x10^3/uL (0.3-0.8) 11/12/19 05:23 Eos # (Auto) 0.0 x10^3/uL (0.0-0.2) 11/12/19 05:23 Baso # (Auto) 0.0 X10^3/uL (0.0-0.1) 11/12/19 05:23 Absolute Nucleated RBC 0.1 /100WBC 11/12/19 05:23 Total Counted 100 11/11/19 05:22 Neutrophils % (Manual) 85 % (39-76) H 11/11/19 05:22 Lymphocytes % (Manual) 8 % (13-43) L 11/11/19 05:22 Monocytes % (Manual) 7 % (4-9) 11/11/19 05:22 Plt Morphology Comment Normal (NORMAL) 11/11/19 05:22 RBC Morphology Normal (NORMAL) 11/11/19 05:22 PT 12.1 SECONDS (11.8-14.3) 11/10/19 01:29 INR Target Range - 11/10/19 01:29 INR 0.93 (0.8-1.3) 11/10/19 01:29 APTT 29.7 SECONDS (22.9-36.5) 11/10/19 01:29 PTT Comment - 11/10/19 01:29 D-Dimer < 100 ng/mL (0-400) 11/10/19 01:29 Sodium 141 mmol/L (136-145) 11/12/19 05:23 Corrected Sodium 142 mmol/L (136-145) 11/12/19 05:23 Potassium 4.1 mmol/L (3.5-5.1) 11/12/19 05:23 Chloride 108 mmol/L (98-107) H 11/12/19 05:23 Carbon Dioxide 24.3 mmol/L (21-32) 11/12/19 05:23 BUN 17 mg/dL (7-18) 11/12/19 05:23 Creatinine 0.89 mg/dL (0.55-1.02) 11/12/19 05:23 Est GFR (MDRD) Af Amer > 60 (>60) 11/12/19 05:23 Est GFR (MDRD) Non-Af > 60 (>60) 11/12/19 05:23 Glucose 123 mg/dL (65-99) H 11/12/19 05:23 Calcium 9.3 mg/dL (8.5-10.1) 11/12/19 05:23 Corrected Calcium 9.9 mg/dL (8.5-10.1) 11/12/19 05:23 Magnesium 1.9 mg/dL (1.7-2.9) 11/10/19 01:29 Total Bilirubin 0.30 mg/dL (0.2-1.0) 11/12/19 05:23 AST 15 Units/L (15-37) 11/12/19 05:23 ALT 26 Units/L (12-78) 11/12/19 05:23 Alkaline Phosphatase 90 Units/L (46-116) 11/12/19 05:23 Creatine Kinase 49 Units/L (26-192) 11/10/19 01:29 CK-MB (CK-2) 1.3 ng/mL (0-4.0) 11/10/19 01:29 CK/CKMB % Calc 2.7 % (<4) 11/10/19 01:29 Troponin I < 0.02 ng/mL (0-1.5) 11/10/19 01:29 Total Protein 6.4 g/dL (6.4-8.2) 11/12/19 05:23 Albumin 3.2 g/dL (3.4-5.0) L 11/12/19 05:23 Globulin 3.2 g/dL (2.5-4.5) 11/12/19 05:23 Albumin/Globulin Ratio 1.0 Ratio (1.1-2.1) L 11/12/19 05:23 Reason For Visit: COPD EXCERBATION; BRONCHITIS, ACUTE; HYPOXEMIA; Discharge Date Discharge Date: 11/12/19 Discharge Diagnosis All Active Problems (Updated 11/10/19 @ 05:33 by ASTON PEREZ) COPD with acute exacerbation (Acute) Bronchitis, acute (Acute) Cardiomegaly (Acute) Hypoxemia requiring supplemental oxygen (Acute) Chronic kidney disease (CKD) (Acute) Hyperglycemia (Acute) Plan of Treatment: Continue with present treatment and follow up plan. Pt is to keep follow up appointment as instructed and take medications as ordered. Discharge Medications Discharge Medications: levofloxacin Allergy (Verified 11/10/19 00:04) Penicillins Allergy (Verified 11/10/19 00:05) CONTINUE taking the following medications diltiazem HCl 120 mg PO DAILY 11/10/19 [History] ergocalciferol (vitamin D2) 1,250 mcg PO QWEEK 11/10/19 [History] escitalopram oxalate 20 mg PO DAILY 11/10/19 [History] lorazepam 0.5 mg PO TID PRN 11/10/19 [History] metoprolol succinate 25 mg PO BID 11/10/19 [History] pantoprazole 40 mg PO QAM 11/10/19 [History] rosuvastatin [Crestor] 40 mg PO QHS 11/10/19 [History] valsartan 80 mg PO BID 11/10/19 [History] zolpidem [Ambien] 10 mg PO QHS PRN 11/10/19 [History] New Prescriptions azithromycin 250 mg PO DAILY 5 Days #6 tab 11/12/19 [Rx] hydrocodone-homatropine 5 ml PO Q6H PRN 10 Days #200 ml MDD 20 11/12/19 [Rx] ipratropium-albuterol 3 ml NEB Q4RESP 30 Days #30 vial 11/12/19 [Rx] prednisone 40 mg PO DAILY 5 Days #10 tab 11/12/19 [Rx] Follow up and Referral Follow Up: 1 Week Discharge Disposition Discharge Disposition: Home Discharge Condition: Stable
[2019-11-12] MEDS: ROCEPHIN VIAL 1 GRAM 1 G in NS 100 ML IV + SPIKE MINIBAG* 100 ML IV SCH (08:56)
[2019-11-12] MEDS: PREDNISONE TAB 20 MG PO SCH (08:57)
[2019-11-12] MEDS: CARDIZEM CD 120 MG 24-HR PO SCH (08:58)
[2019-11-12] MEDS: LEXAPRO PO SCH (08:58)
[2019-11-12] MEDS: TOPROL XL PO SCH (08:59)
[2019-11-12] MEDS: LOVENOX INJ 40 MG SYR SC SCH (08:59)
[2019-11-12] MEDS: PROTONIX TAB 40 MG PO SCH (08:59)
[2019-11-12] MEDS: DIOVAN TAB 160 MG PO SCH (08:59)
[2019-11-12] MEDS: ZITHROMAX TAB 250 MG PO SCH (08:59)
[2019-11-12] MEDS: ROBITUSSIN DM PO PRN (09:06)
[2019-11-12 12:12] VITALS: BP 162/72
== END 2019-11-12 11:50 | disposition home or self-care (01) | DRG 191 ==
LOC: ER 23:50 → OBS 11-10 05:56 → MED/SURG 11-10 09:27
PROVIDERS: ADMIT Family Medicine; ATTEND Family Medicine
DX: R94.31 Abnormal electrocardiogram [ECG] [EKG]; Z23 Encounter for immunization; N18.3 Chronic kidney disease, stage 3 (moderate); E11.65 Type 2 diabetes mellitus with hyperglycemia; J44.1 Chronic obstructive pulmonary disease with (acute) exacerbation; J20.8 Acute bronchitis due to other specified organisms; R09.02 Hypoxemia; Z99.81 Dependence on supplemental oxygen; R26.89 Other abnormalities of gait and mobility; N17.8 Other acute kidney failure; Z72.0 Tobacco use; R06.02 Shortness of breath
CPT/HCPCS: 36415; 71010; 71045; 80048; 80053; 82550; 82553; 83735; 84484; 85025; 85378; 85610; 85730; 87040; 87070; 87077; 87186; 87205; 90670; 93005; 94640; 94760; 96365; 96367; 96374; 96375; 97161; 99284; A4222; G0378; J0696; J1650; J2920; J2930; J3490; J7030; J7050; J7512; J7620

== ENCOUNTER 2020-07-26 15:16 | Inpatient (IN) ==
[2020-07-26 15:33] VITALS: BMI 36.4
--- NOTE | 2020-07-26 17:21 | DR.SOBA ---
HPI Time Seen Time Seen by Provider: 07/26/20 17:05 Primary Care Physician Primary Care Physician: RICHARD HPI Comment HPI Comment: PATIENT IS 65YR OLD FEMALE IN ER WITH INCREASING SOB, COUGH, CONGESTION AND WEAKNESS TIMES 3 DAYS. WORSE TODAY. Complaints Chief Complaint Doctors Comments: COUGH, CONGESTION AND SOB TIMES 3 DAYS. Chief Complaint:: PT STATES I WENT TO [facility] ER THEY DID AN X-RAY AND IT SHOWED PNEUMONIA. PT HAD ALLERGIC REACTION TO VANCOMYCIN. SHORT OF BREATH HAS BEEN GETTING WORSE. COVID-19 Coronavirus risk:travel/contact w/high risk person: No Has patient experienced Coronavirus symptoms: Yes Coronavirus symptoms experienced: Coughing and Shortness of Breath Reviewed Nurses Notes Reviewed: Yes Source History Provided: Patient Mode of Arrival Mode of Arrival: Ambulatory Timing Onset of Chief Complaint: 07/23/20 Duration Duration: Days Context Onset:: At Rest PE Risk Factors:: None History of:: COPD Prehospital Care:: O2 and Inhaled B2 Modifying Factors Worsens:: Exertion and Lying Flat Improves:: Inhaler, Rest and Sitting Up Associated Signs and Symptoms Associated Signs and Symptoms: Wheeze, Cough and Nasal Congestion If Chest Pain Quality: Sharp and Aching Location: Substernal If Cough Cough: Productive and Yellow PMH PMH Past Medical History: Yes Past Medical History: Anxiety, COPD, Coronary Artery Disease and Hypertension Past Surgical History: Yes Surgical History: Other Past Surgical History Comment: SINUS SURGERY IN THE 80'S Family History History of Family Medical Conditions: Yes Family Medical History: Cancer and Coronary Artery Disease Social History Type of Tobacco Use: Cigarettes Does any household member use tobacco: Yes Alcohol Use: None Do you use any recreational Drugs:: No Lives With: Spouse Lives Where: Home Infectious screening In the last 2 months have you had wt loss of >10#?: NO Have you had fever, night sweats or hemotysis?: No Have you traveled outside the country in the last 6 months?: No Isolation: Droplet ROS Review of Systems Constitutional: No Symptoms Reported and See HPI Eyes: No Symptoms Reported and See HPI ENTM: No Symptoms Reported and See HPI Respiratoy: No Symptoms Reported and See HPI Cardiovascular: No Symptoms Reported and See HPI Gastrointestinal/Abdominal: No Symptoms Reported and See HPI Genitourinary: No Symptoms Reported and See HPI Neurological: No Symptoms Reported and See HPI Musculoskeletal: No Symptoms Reported and See HPI Integumentary: No Symptoms Reported and See HPI Hematologic/Lymphatic: No Symptoms Reported and See HPI Endocrine: No Symptoms Reported and See HPI Psychiatric: No Symptoms Reported and See HPI All Other Systems: Reviewed and Negative PE Vital Signs Vitals: Temperature 97.3 F Pulse Rate 70 Respiratory Rate 20 Blood Pressure [Left Arm] 162/72 Blood Pressure 145/66 O2 Sat by Pulse Oximetry 98 General Limitations: No Limitations General Appearance: Alert and In No Apparent Distress Head Head Exam: Normal Inspection Eyes Eye exam: Normal Appearance ENT ENT Exam: Normal Exam Neck Neck Exam: Normal Inspection Chest Chest Inspection: Normal Inspection Respiratory Respiratory Exam: Normal Lung Sounds Bilat Respiratory Exam: Bilateral: Clear to Auscultation Cardiovascular Cardiovascular Exam: Regular Rate and Normal Rhythm Abdominal Exam Abdominal Exam: Normal Inspection, Normal Bowel Sounds and Soft Extremities Extremities Exam: Normal Inspection Back Back Exam: Normal Inspection Neurologic Neurological Exam: Alert and Oriented X3 Psychiatric Psychiatric Exam: Normal Affect and Normal Mood Skin Skin Exam: Warm, Dry, Intact and Normal Color ROR Labs Reviewed Result Diagrams: 07/29/20 05:29 07/29/20 05:29 Laboratory: 07/26/20 17:44 Blood Blood Culture - Final 07/26/20 17:37 Blood Blood Culture - Final WBC 16.5 X10^3/uL (3.6-10.0) H 07/26/20 17:37 RBC 4.81 X10^6/uL (3.5-5.4) 07/26/20 17:37 Hgb 13.1 g/dL (12.0-16.0) 07/26/20 17:37 Hct 39.5 % (36.0-47.0) 07/26/20 17:37 MCV 82.2 fL (80.0-100.0) 07/26/20 17:37 MCH 27.2 pg (27.0-34.0) 07/26/20 17:37 MCHC 33.1 g/dL (33.0-35.0) 07/26/20 17:37 RDW 16.3 % (11.6-16.5) 07/26/20 17:37 Plt Count 334 X10^3/uL (150.0-450.0) 07/26/20 17:37 MPV 9.2 fL (7.4-11.0) 07/26/20 17:37 Neut % (Auto) 82.3 % (42.0-75.0) H 07/26/20 17:37 Lymph % (Auto) 12.0 % (21.0-51.0) L 07/26/20 17:37 [place] % (Auto) 5.3 % (0.0-13.0) 07/26/20 17:37 Eos % (Auto) 0.0 % (0.9-2.9) L 07/26/20 17:37 Baso % (Auto) 0.4 % (0.2-1.0) 07/26/20 17:37 Neut # (Auto) 13.6 x10^3/uL (2.2-4.8) H 07/26/20 17:37 Lymph # (Auto) 2.0 X10^3/uL (1.3-2.9) 07/26/20 17:37 [place] # (Auto) 0.9 x10^3/uL (0.3-0.8) H 07/26/20 17:37 Eos # (Auto) 0.0 x10^3/uL (0.0-0.2) 07/26/20 17:37 Baso # (Auto) 0.1 X10^3/uL (0.0-0.1) 07/26/20 17:37 Absolute Nucleated RBC 0.0 /100WBC 07/26/20 17:37 Sodium 141 mmol/L (136-145) 07/26/20 17:37 Corrected Sodium TNP 07/26/20 17:37 Potassium 4.3 mmol/L (3.5-5.1) 07/26/20 17:37 Chloride 105 mmol/L (98-107) 07/26/20 17:37 Carbon Dioxide 24.9 mmol/L (21-32) 07/26/20 17:37 BUN 28 mg/dL (7-18) H 07/26/20 17:37 Creatinine 1.66 mg/dL (0.55-1.02) H 07/26/20 17:37 Est GFR (MDRD) Af Amer 40 (>60) L 07/26/20 17:37 Est GFR (MDRD) Non-Af 33 (>60) L 07/26/20 17:37 Glucose 110 mg/dL (65-99) H 07/26/20 17:37 Lactic Acid 1.3 mmol/L (0.4-2.0) 07/26/20 17:37 Calcium 10.0 mg/dL (8.5-10.1) 07/26/20 17:37 Corrected Calcium TNP 07/26/20 17:37 Total Bilirubin 0.40 mg/dL (0.2-1.0) 07/26/20 17:37 AST 9 Units/L (15-37) L 07/26/20 17:37 ALT 21 Units/L (12-78) 07/26/20 17:37 Alkaline Phosphatase 81 Units/L (46-116) 07/26/20 17:37 Creatine Kinase 19 Units/L (26-192) L 07/26/20 17:37 CK-MB (CK-2) < 1.0 ng/mL (0-4.0) 07/26/20 17:37 CK/CKMB % Calc 5.3 % (<4) 07/26/20 17:37 Troponin I < 0.02 ng/mL (0-1.5) 07/26/20 17:37 Total Protein 6.9 g/dL (6.4-8.2) 07/26/20 17:37 Albumin 3.7 g/dL (3.4-5.0) 07/26/20 17:37 Globulin 3.2 g/dL (2.5-4.5) 07/26/20 17:37 Albumin/Globulin Ratio 1.2 Ratio (1.1-2.1) 07/26/20 17:37 Specimen Type Clean catch urine 07/26/20 17:11 Urine Color Yellow (YELLOW) 07/26/20 17:11 Urine Appearance Clear (CLEAR) 07/26/20 17:11 Urine pH 6.0 (5.0 - 8.0) 07/26/20 17:11 Ur Specific [place] 1.020 (1.000-1.030) 07/26/20 17:11 Urine Protein 3+ (NEGATIVE) 07/26/20 17:11 Urine Glucose (UA) Negative (NEGATIVE) 07/26/20 17:11 Urine Ketones Negative (NEGATIVE) 07/26/20 17:11 Urine Occult Blood 2+ (NEGATIVE) 07/26/20 17:11 Urine Nitrite Negative (NEGATIVE) 07/26/20 17:11 Urine Bilirubin Negative (NEGATIVE) 07/26/20 17:11 Urine Urobilinogen Normal (NORMAL) 07/26/20 17:11 Ur Leukocyte Esterase Negative (NEGATIVE) 07/26/20 17:11 Urine RBC 0-2 /HPF (0-3) 07/26/20 17:11 Urine WBC None seen /HPF (0-5) 07/26/20 17:11 Ur Squamous Epith Cells Few /HPF (NEGATIVE) 07/26/20 17:11 Amorphous Sediment 1+ /HPF (NEGATIVE) 07/26/20 17:11 Urine Bacteria Trace /HPF (NEGATIVE) 07/26/20 17:11 Ur Culture Indicated? No/not indicated 07/26/20 17:11 SARS-CoV-2 (PCR) Negative (NEGATIVE) 07/26/20 19:09 Opioid Opioid Risk Tool Age (Natalio box if 16-45): No History of Preadolescent Sexual Abuse: No Total: 0 Total Score Risk Category: Low Risk Copyright: Herminio DON predicting aberrant behaviors Diagnosis Discharge Problem: COPD exacerbation Pneumonia Qualifiers: Pneumonia type: due to unspecified organism Laterality: left Lung location: lower lobe of lung Qualified Code(s): J18.9 - Pneumonia, unspecified organism Instructions Instructions: Fall Prevention in the Home, Adult, [id number] Shortness of Breath, Adult, Hafm-gd-Cayq Chronic Obstructive Pulmonary Disease Exacerbation, Ioji-vl-Aple Hypertension, Zofh-iw-[id number] Community-Acquired Pneumonia, Adult, Zqlt-bu-Yjzh Forms: Precautions for COVID19 Patient Portal Social Distancing
[2020-07-26 17:34] LABS: BILIRUBIN,URINE NEGATIVE (NEGATIVE); BLOOD/HEMOGLOBIN,URINE 2+ (NEGATIVE); GLUCOSE, URINE NEGATIVE (NEGATIVE); KETONES,URINE NEGATIVE (NEGATIVE); LEUKOCYTE ESTERASE ,URINE NEGATIVE (NEGATIVE); NITRITES,URINE NEGATIVE (NEGATIVE); PROTEIN,URINE 3+ (NEGATIVE); UROBILINOGEN,URINE NORMAL (NORMAL)
[2020-07-26 17:55] LABS: BASOPHILS # (AUTO) 0.1 X10^3/uL (0.0-0.1); BASOPHILS % (AUTO) 0.4 % (0.2-1.0); HEMATOCRIT 39.5 % (36.0-47.0); HEMOGLOBIN 13.1 g/dL (12.0-16.0); MEAN CORPUSCULAR HEMOGLOBIN 27.2 pg (27.0-34.0); MEAN CORPUSCULAR HGB CONC 33.1 g/dL (33.0-35.0); MEAN CORPUSCULAR VOLUME 82.2 fL (80.0-100.0); MEAN PLATELET VOLUME 9.2 fL (7.4-11.0); MONOCYTES # (AUTO) 0.9 x10^3/uL (0.3-0.8); MONOCYTES % (AUTO) 5.3 % (0.0-13.0); NEUTROPHILS # (AUTO) 13.6 x10^3/uL (2.2-4.8); NEUTROPHILS % (AUTO) 82.3 % (42.0-75.0); PLATELET COUNT 334 X10^3/uL (150.0-450.0); RED BLOOD COUNT 4.81 X10^6/uL (3.5-5.4); RED CELL DISTRIBUTION WIDTH 16.3 % (11.6-16.5); WHITE BLOOD COUNT 16.5 X10^3/uL (3.6-10.0)
[2020-07-26 17:56] LABS: AMORPHOUS SEDIMENT,UR 1+ /HPF (NEGATIVE); APPEARANCE,URINE CLEAR (CLEAR); BACTERIA,URINE TRACE /HPF (NEGATIVE); COLOR,URINE YELLOW (YELLOW); RBC,URINE 0-2 /HPF (0-3); SQUAMOUS EPITHELIAL CELL,UR FEW /HPF (NEGATIVE)
--- NOTE | 2020-07-26 17:58 | RAD ---
EXAM: CHEST X-RAYHISTORY: Pneumonia. Worsening shortness of breath. COPD.TECHNIQUE: AP chest x-ray dated 07/26/2020 at 5:39 PM.COMPARISON: CXR dated November 10, 2019.FINDINGS:The heart size and mediastinum are within normal limits. There is lung parenchymal hyperinflation and hyperlucency in keeping with COPD/emphysema. There is interval appearance of asymmetrical bronchopulmonary prominence in the right lower lung field/lung base in keeping with bronchitis and/or acute pneumonia in the appropriate clinical setting. There is no pleural effusion, or pneumothorax seen. The visualized bony structures are within normal limits.IMPRESSION:1. Interval appearance of asymmetrical bronchopulmonary prominence in the right lower lung field/lung base in keeping with bronchitis and/or acute pneumonia in the appropriate clinical setting.2. Stable COPD/emphysema.Electronically signed by: Francois Moses (Jul 26, 2020 17:56:45)
[2020-07-26 18:18] LABS: BLOOD UREA NITROGEN 28 mg/dL (7-18); CARBON DIOXIDE 24.9 mmol/L (21-32); CHLORIDE 105 mmol/L (98-107); CREATININE 1.66 mg/dL (0.55-1.02); SODIUM 141 mmol/L (136-145); TROPONIN I < 0.02 ng/mL (0-1.5); eGFR NON BLACK RACES 33 (>60)
[2020-07-26 18:23] LABS: ALANINE AMINOTRANSFERASE 21 Units/L (12-78); ALBUMIN 3.7 g/dL (3.4-5.0); ALKALINE PHOSPHATASE 81 Units/L (46-116); ASPARTATE AMINO TRANSFERASE 9 Units/L (15-37); CKMB % 5.3 % (<4); CREATINE KINASE 19 Units/L (26-192); CREATINE KINASE MB < 1.0 ng/mL (0-4.0); TOTAL PROTEIN 6.9 g/dL (6.4-8.2)
[2020-07-26 18:29] LABS: LACTIC ACID 1.3 mmol/L (0.4-2.0)
[2020-07-26] MEDS ORDERED: NS 1/2 1000 ML IV 1,000 ML IV ONE (20:44)
[2020-07-26] MEDS ORDERED: INVANZ INJ 1 GM VIAL ONE (20:44)
[2020-07-26] MEDS ORDERED: NS 100 ML IV + SPIKE MINIBAG* 100 ML IV ONE (20:44)
[2020-07-26] MEDS: NS 1/2 1000 ML IV 1,000 ML IV SCH (20:45)
[2020-07-26] MEDS ORDERED: INVANZ INJ 1 GM VIAL 1 GM in NS 100 ML IV + SPIKE MINIBAG* 100 ML IV ONE (20:50)
[2020-07-26] MEDS ORDERED: DUONEB 0.5 MG/3 MG (3 mL) NEB ONE (21:05)
[2020-07-26] MEDS: DUONEB 0.5 MG/3 MG (3 mL) NEB SCH (21:15)
[2020-07-26] MEDS ORDERED: TUSSIONEX PENNKINETIC SUSP PO PRN (21:36)
[2020-07-26] MEDS ORDERED: ROSUVASTATIN 40 MG PO SCH (21:36)
[2020-07-26] MEDS ORDERED: DIOVAN TAB 80 MG PO ONE (21:56)
[2020-07-26] MEDS ORDERED: ROBITUSSIN DM ONE (21:57)
[2020-07-26] MEDS: ZITHROMAX INJ 500 MG VIAL 500 MG in D5W 250 ML IV 250 ML IV SCH (22:03)
[2020-07-26] MEDS: ROBITUSSIN DM PO SCH (22:16)
[2020-07-26] MEDS: ATIVAN TAB 0.5 MG PO PRN (22:56)
[2020-07-26] MEDS: DIOVAN TAB 80 MG PO SCH (22:56)
[2020-07-26] MEDS: AMBIEN PO SCH (22:58)
[2020-07-26] MEDS: CRESTOR TAB 10 MG PO SCH (23:09)
[2020-07-27] LABS: CKMB % 3.9 % (<4); CREATINE KINASE 26 Units/L (26-192); CREATINE KINASE MB < 1.0 ng/mL (0-4.0); TROPONIN I < 0.02 ng/mL (0-1.5)
[2020-07-27] MEDS: DUONEB 0.5 MG/3 MG (3 mL) NEB SCH ×5 (00:55→21:07)
[2020-07-27] MEDS: DIOVAN TAB 80 MG PO SCH ×3 (05:27→21:00)
[2020-07-27] MEDS: NS 1/2 1000 ML IV 1,000 ML IV SCH ×3 (05:27→20:49)
[2020-07-27 06:36] LABS: BASOPHILS % (AUTO) 0.2 % (0.2-1.0); EOSINOPHILS % (AUTO) 0.2 % (0.9-2.9); HEMATOCRIT 39.4 % (36.0-47.0); HEMOGLOBIN 12.7 g/dL (12.0-16.0); LYMPHOCYTES # (AUTO) 3.9 X10^3/uL (1.3-2.9); LYMPHOCYTES % (AUTO) 28.5 % (21.0-51.0); MEAN CORPUSCULAR HEMOGLOBIN 26.9 pg (27.0-34.0); MEAN CORPUSCULAR HGB CONC 32.2 g/dL (33.0-35.0); MEAN CORPUSCULAR VOLUME 83.5 fL (80.0-100.0); NEUTROPHILS # (AUTO) 8.8 x10^3/uL (2.2-4.8); NEUTROPHILS % (AUTO) 64.1 % (42.0-75.0); PLATELET COUNT 302 X10^3/uL (150.0-450.0); RED BLOOD COUNT 4.72 X10^6/uL (3.5-5.4); RED CELL DISTRIBUTION WIDTH 16.5 % (11.6-16.5); WHITE BLOOD COUNT 13.7 X10^3/uL (3.6-10.0)
[2020-07-27 07:05] LABS: ALANINE AMINOTRANSFERASE 20 Units/L (12-78); ALBUMIN 3.4 g/dL (3.4-5.0); ALKALINE PHOSPHATASE 77 Units/L (46-116); ASPARTATE AMINO TRANSFERASE 14 Units/L (15-37); BLOOD UREA NITROGEN 25 mg/dL (7-18); CALCIUM 9.7 mg/dL (8.5-10.1); CARBON DIOXIDE 26.2 mmol/L (21-32); CHLORIDE 106 mmol/L (98-107); CKMB % 4.6 % (<4); CREATINE KINASE 22 Units/L (26-192); CREATINE KINASE MB < 1.0 ng/mL (0-4.0); CREATININE 1.37 mg/dL (0.55-1.02); SODIUM 142 mmol/L (136-145); TOTAL PROTEIN 6.3 g/dL (6.4-8.2); TROPONIN I < 0.02 ng/mL (0-1.5); eGFR NON BLACK RACES 41 (>60)
[2020-07-27] MEDS ORDERED: LEXAPRO ONE (08:25)
[2020-07-27] MEDS ORDERED: DILTIAZEM HCL 120 MG PO SCH (09:00)
[2020-07-27] MEDS ORDERED: PATIENT'S HOME MEDICATION (Escitalopram Oxalate 20 mg Tablet) PO SCH (09:00)
[2020-07-27] MEDS: PROTONIX TAB 40 MG PO SCH (09:21)
[2020-07-27] MEDS: LEXAPRO PO SCH (09:21)
[2020-07-27] MEDS: CARDIZEM CD 120 MG 24-HR PO SCH (09:21)
[2020-07-27] MEDS: VSL#3 PO SCH (09:22)
[2020-07-27] MEDS: SINGULAIR TAB 10 MG PO SCH (09:22)
[2020-07-27] MEDS: ZITHROMAX INJ 500 MG VIAL 500 MG in D5W 250 ML IV 250 ML IV SCH (09:22)
[2020-07-27] MEDS: ROBITUSSIN DM PO SCH ×4 (09:22→20:48)
[2020-07-27] MEDS: TOPROL XL PO SCH ×2 (09:22→20:48)
--- NOTE | 2020-07-27 11:42 | DR.H&P ---
H&P - History & Physical for Day of: H&P Date: 07/26/20 - Chief Complaint Chief Complaint: COUGH, SOB, CONGESTION, WEAKNESS - History of Present Illness History of Present Illness: IS A 65 YEAR OLD PATIENT OF SAVAGE DOWNING. SHE PRESENTED TO THE ER WITH COMPLAINTS OF INCREASING SHORTNESS OF BREATH, COUGH, CONGESTION, AND WEAKNESS. SYMPTOMS STARTED THREE DAYS AGO AND HAVE PROGRESSIVELY GOTTEN WORSE. SHE REPORTS THAT SHE WAS RECENTLY DIAGNOSED WITH PNEUMONIA. SHE ADMITS TO WHEEZING, PRODUCTIVE COUGH, AND NASAL CONGESTION. SHE HAS BEEN TAKING DOXYCYCLINE 100MG PO BID X 10 DAYS, AZITHROMYCIN 250MG PO DAILY X 5 DAYS, PREDNISONE 20MG PO BID, AND TRELEGY INHALER. HER PMH INCLUDES: ANXIETY, COPD, CAD, AND HYPERTENSION. ON ARRIVAL TO THE ER, VITALS WERE 97.3-70-20-98%NC-145/66. LABS WERE OBTAINED. ABNORMAL LAB VALUES INCLUDE THE FO LLOWING: WBC 16.5, BUN 28, CREATININE 1.66, GLUCOSE 110, AST 9, CREATINE KINASE 19. CARDIAC ENZYMES ARE WITHIN NORMAL LIMITS. URINALYSIS NEGATIVE. COVID-19 NEGATIVE. BLOOD CULTURES ARE PENDING. SPUTUM CULTURE IS PENDING. GRAM STAIN IS POSITVE FOR GRAM NEGATIVE RODS. A CHEST XRAY WAS OBTAINED AND REVEALED: 1. Interval appearance of asymmetrical bronchopulmonary prominence in the right lower lung field/lung base in keeping with bronchitis and/or acute pneumonia in the appropriate clinical setting. 2. Stable COPD/emphysema. EKG REVEALED: SINUS RHYTHM WITH HR 58. SHE WAS GIVEN INVANZ 1G IV X 1 DOSE. SHE WAS ADMITTED FOR FURTHER EVALUATION AND TREATMENT OF PNEUMONIA AND COPD EXACERBATION. SHE WAS STARTED ON 1/2NS AT 75 ML/HR, INVANZ 1G IV DAILY, AZITHROMYCIN 500MG IV DAILY, DUONEBS Q6H, TESSALON PERLES 200MG PO TID, TUSSIONEX 5ML PO Q12H, ROBITUSSIN DM 10 ML PO QID, SOLU-MEDROL 80MG IV Q8H, LOVENOX 40MG SC DAILY, AND HER HOME MEDICATIONS WERE RESUMED. OTHERWISE, WE PLAN TO FOLLOW UP WITH AM LABS AND CONTINUE TO MONITOR. TIME SPENT ON CLINICAL ASSESSMENT, REVIEWING LABS AND IMAGING, DECISION MAKING, AND DOCUMENTATION WAS GREATER THAN 75 MINUTES. - Past Medical History Past Medical History: Coronary Artery Disease, Hypertension, Anxiety, COPD - Family History Family Medical History: Cancer, Coronary Artery Disease - Social History Does patient currently use any type of tobacco product: Yes Have you used tobacco products in the last 12 months: Yes Type of Tobacco Use: Cigarettes How many years tobacco product used: 40 Packs per day or dips/chews per day: 1 Does any household member use tobacco: Yes Alcohol Use: None Drug Use: None - Medications Home Medications: levofloxacin Allergy (Verified 11/10/19 00:04) Penicillins Allergy (Verified 11/10/19 00:05) vancomycin Adverse Reaction (Verified 07/26/20 15:33) - Review of Systems Constitutional: Weakness Eyes: No Symptoms Reported ENT: No Symptoms Reported Respiratory: See HPI, Cough, Shortness of Breath, Sputum, Wheezing Cardiovascular: No Symptoms Reported Gastrointestinal: No Symptoms Reported Genitourinary: No Symptoms Reported Musculoskeletal: No Symptoms Reported Skin: No Symptoms Reported Neurological: Weakness - Physical Exam Vital Signs: Temperature 98.2 F Pulse Rate [Right Brachial] 58 Pulse Rate 70 Respiratory Rate 20 Blood Pressure [Right Arm] 133/63 Blood Pressure [Left Arm] 162/72 Blood Pressure 145/66 O2 Sat by Pulse Oximetry 99 Oriented: Normal Eyes: Normal Ear: Normal Nose: Normal Throat: Normal Respiratory: Wheezes Throughout Cardiovascular: Normal : Normal Auscultation: Bowel Sounds: Normal Palpation: Normal Tenderness: Normal Skin: Normal Musculoskeletal: Normal Psychiatric: Normal Mood Description: Calm Affect: Normal Speech Pattern: Clear - Assessment/Plan (1) Pneumonia Qualifiers: Pneumonia type: due to unspecified organism Laterality: left Lung location: lower lobe of lung Qualified Code(s): J18.9 - Pneumonia, unspecified organism Status: Acute Plan: ADMIT, 1/2NS AT 75 ML/HR, INVANZ 1G IV DAILY, AZITHROMYCIN 500MG IV DAILY, DUONEBS Q6H, TESSALON PERLES 200MG PO TID, TUSSIONEX 5ML PO Q12H, ROBITUSSIN DM 10 ML PO QID, SOLU-MEDROL 80MG IV Q8H, LOVENOX 40MG SC DAILY, AND HER HOME MEDICATIONS WERE RESUMED, SUPPLEMENTAL OXYGEN (2) COPD exacerbation Status: Acute - Allergies Allergies/Adverse Reactions: Allergies Allergy/AdvReac Type Severity Reaction Status Date / Time levofloxacin Allergy Verified 11/10/19 00:04 Penicillins Allergy Verified 11/10/19 00:05 vancomycin AdvReac Verified 07/26/20 15:33
[2020-07-27] MEDS: ATIVAN TAB 0.5 MG PO PRN ×2 (13:00→21:09)
[2020-07-27] MEDS: SOLU-Medrol 40 MG VIAL IVP SCH ×3 (13:56→21:01)
[2020-07-27] MEDS: TUSSIONEX PENNKINETIC SUSP PO SCH ×3 (13:57→22:45)
[2020-07-27] MEDS: LOVENOX INJ 40 MG SYR SC SCH (13:57)
[2020-07-27] MEDS: TESSALON PERLES PO SCH ×2 (13:58→21:01)
[2020-07-27] MEDS ORDERED: NS 1/2 1000 ML IV 1,000 ML IV ONE ×2 (14:07→19:50)
[2020-07-27] MEDS: INVANZ INJ 1 GM VIAL 1 GM in NS 100 ML IV + SPIKE MINIBAG* 100 ML IV SCH (20:47)
[2020-07-27] MEDS: AMBIEN PO SCH (20:48)
[2020-07-27] MEDS: CRESTOR TAB 10 MG PO SCH (20:48)
[2020-07-27] MEDS ORDERED: NORCO 5/325 MG TAB PO PRN (21:21)
[2020-07-28] MEDS: DUONEB 0.5 MG/3 MG (3 mL) NEB SCH ×6 (00:39→20:35)
[2020-07-28] MEDS: TESSALON PERLES PO SCH ×3 (05:02→21:21)
[2020-07-28] MEDS: DIOVAN TAB 80 MG PO SCH ×3 (05:02→21:21)
[2020-07-28] MEDS: NS 1/2 1000 ML IV 1,000 ML IV SCH ×4 (05:02→21:21)
[2020-07-28] MEDS: SOLU-Medrol 40 MG VIAL IVP SCH ×3 (05:02→21:21)
[2020-07-28 06:02] LABS: ALBUMIN 3.2 g/dL (3.4-5.0); CALCIUM 9.5 mg/dL (8.5-10.1); CARBON DIOXIDE 23.8 mmol/L (21-32); COR CA(FOR HYPOALB) 10.1 mg/dL (8.5-10.1); CREATININE 1.25 mg/dL (0.55-1.02); TOTAL PROTEIN 6.2 g/dL (6.4-8.2)
[2020-07-28 06:06] LABS: BASOPHILS % (AUTO) 0.2 % (0.2-1.0); EOSINOPHILS % (AUTO) 0.1 % (0.9-2.9); HEMATOCRIT 37.2 % (36.0-47.0); HEMOGLOBIN 12.2 g/dL (12.0-16.0); LYMPHOCYTES % (AUTO) 13.9 % (21.0-51.0); MEAN CORPUSCULAR HEMOGLOBIN 27.3 pg (27.0-34.0); MEAN CORPUSCULAR HGB CONC 32.7 g/dL (33.0-35.0); MEAN CORPUSCULAR VOLUME 83.4 fL (80.0-100.0); MEAN PLATELET VOLUME 9.8 fL (7.4-11.0); MONOCYTES # (AUTO) 0.2 x10^3/uL (0.3-0.8); MONOCYTES % (AUTO) 1.5 % (0.0-13.0); NEUTROPHILS % (AUTO) 84.3 % (42.0-75.0); PLATELET COUNT 264 X10^3/uL (150.0-450.0); RED BLOOD COUNT 4.46 X10^6/uL (3.5-5.4); RED CELL DISTRIBUTION WIDTH 15.7 % (11.6-16.5); WHITE BLOOD COUNT 14.2 X10^3/uL (3.6-10.0)
--- NOTE | 2020-07-28 06:32 | RAD ---
HISTORYSOBSTUDYCHEST, 1 QADRCOCLYPWHAN63/22/2020TECHNIQUEAP view of the chestFINDINGSCardiac and mediastinal contours appear stable. Mild bibasilar reticular opacities with curvilinear left base opacity. No pleural effusion or pneumothorax. Lungs are hyperexpanded.IMPRESSIONSuspect COPD with bibasilar reticular opacities which could represent chronic interstitial change. Subsegmental atelectasis in the left base.Electronically signed by: Ian Rolon (Jul 28, 2020 06:31:27)
[2020-07-28] MEDS ORDERED: LEXAPRO ONE (08:30)
[2020-07-28] MEDS: LEXAPRO PO SCH (09:00)
[2020-07-28] MEDS: PROTONIX TAB 40 MG PO SCH (09:02)
[2020-07-28] MEDS: SINGULAIR TAB 10 MG PO SCH (09:02)
[2020-07-28] MEDS: CARDIZEM CD 120 MG 24-HR PO SCH (09:02)
[2020-07-28] MEDS: ROBITUSSIN DM PO SCH ×4 (09:02→20:39)
[2020-07-28] MEDS: LOVENOX INJ 40 MG SYR SC SCH (09:03)
[2020-07-28] MEDS: VSL#3 PO SCH (09:03)
[2020-07-28] MEDS: TOPROL XL PO SCH ×2 (09:03→20:38)
[2020-07-28] MEDS: ZITHROMAX INJ 500 MG VIAL 500 MG in D5W 250 ML IV 250 ML IV SCH (09:04)
[2020-07-28] MEDS: ATIVAN TAB 0.5 MG PO PRN ×2 (09:04→20:40)
[2020-07-28] MEDS: TUSSIONEX PENNKINETIC SUSP PO SCH (10:59)
--- NOTE | 2020-07-28 11:19 | PCM.PROG ---
Progress Note - Progress Note for Day of Date of Exam: 07/28/20 - Subjective Subjective: IS BEING TREATED FOR PNEUMONIA AND COPD EXACERBATION. TODAY, SHE IS ALERT AND ORIENTED, LYING IN BED ON MORNING ROUNDS. SHE CONTINUES WITH COMPLAINTS OF COUGH AND SHORTNESS OF BREATH TODAY. ON EXAMINATION, HEART IS REGULAR IN RATE AND RHYTYHM. BILATERAL LUNGS ARE NOTED WITH SCATTERED WHEEZING THROUGHOUT. ABDOMEN IS ROUND, SOFT, AND NON-TENDER WITH NORMAL BOWEL SOUNDS NOTED IN ALL QUADRANTS. HER VITALS THIS MORNING ARE: 98.2-76-20-94%RA-144/67. LABS WERE OBTAINED. ABNORMAL LAB VALUES INCLUDE THE FOLLOWING: WBC 14.2, CREATININE 1.25, GLUCOSE 139, AST 13, TOTAL PROTEIN 6.2, ALBUMIN 3.2. BLOOD AND SPUTUM CULTURES ARE PENDING. A CHEST XRAY WAS OBTAINED AND REVEALED: Suspect COPD with bibasilar reticular opacities which could represent chronic interstitial change. Subsegmental atelectasis in the left base. SHE IS CURRENTLY RECEIVING 1/2NS AT 75 ML/HR, INVANZ 1G IV DAILY, AZITHROMYCIN 500MG IV DAILY, DUONEBS Q6H, TESSALON PERLES 200MG PO TID, TUSSIONEX 5ML PO Q12H, ROBITUSSIN DM 10 ML PO QID, SOLU-MEDROL 80MG IV Q8H, LOVENOX 40MG SC DAILY, AND HER HOME MEDICATIONS WERE RESUMED. WE WILL CONTINUE WITH CURRENT PLAN OF CARE TODAY. OTHERWISE, WE PLAN TO FOLLOW UP WITH AM LABS AND CHEST XRAY AND CONTINUE TO MONITOR. - Past Medical Family Social History Past Med/Fam/Surg Hx: No changes since H&P Allergies: Allergies levofloxacin Allergy (Verified 11/10/19 00:04) Penicillins Allergy (Verified 11/10/19 00:05) vancomycin Adverse Reaction (Verified 07/26/20 15:33) - Review of Systems ROS: No change since H&P - Vital Signs and I&O's Vital Signs: Temperature 98.2 F Pulse Rate [Right Brachial] 76 Pulse Rate 76 Respiratory Rate 20 Blood Pressure [Right Arm] 144/67 Blood Pressure [Left Arm] 162/72 Blood Pressure 145/66 O2 Sat by Pulse Oximetry 93 Intake and Output: Intake & Output 07/25/20 07/26/20 07/27/20 07/28/20 11:59 11:59 11:59 11:59 Intake Total 1210 / 1210 2940 / 2940 Balance 1210 / 1210 2940 / 2940 - Physical Exam Oriented: Normal Eyes: Normal Ear: Normal Nose: Normal Throat: Normal Respiratory: Generalized, Wheezes Cardiovascular: Normal : Normal Auscultation: Bowel Sounds: Normal Palpation: Normal Tenderness: Normal Skin: Normal Musculoskeletal: Normal Psychiatric: Normal Mood Description: Calm Affect: Normal Speech Pattern: Clear, Appropriate - Laboratory and Diagnostics Result Diagrams: 07/28/20 05:18 07/28/20 05:18 Labs: 07/26/20 22:30 Sputum - Expectorated Sputum Sputum Culture - Preliminary 07/26/20 22:30 Sputum - Expectorated Sputum - Final Laboratory WBC 14.2 X10^3/uL (3.6-10.0) H 07/28/20 05:18 RBC 4.46 X10^6/uL (3.5-5.4) 07/28/20 05:18 Hgb 12.2 g/dL (12.0-16.0) 07/28/20 05:18 Hct 37.2 % (36.0-47.0) 07/28/20 05:18 MCV 83.4 fL (80.0-100.0) 07/28/20 05:18 MCH 27.3 pg (27.0-34.0) 07/28/20 05:18 MCHC 32.7 g/dL (33.0-35.0) L 07/28/20 05:18 RDW 15.7 % (11.6-16.5) 07/28/20 05:18 Plt Count 264 X10^3/uL (150.0-450.0) 07/28/20 05:18 MPV 9.8 fL (7.4-11.0) 07/28/20 05:18 Neut % (Auto) 84.3 % (42.0-75.0) H 07/28/20 05:18 Lymph % (Auto) 13.9 % (21.0-51.0) L 07/28/20 05:18 [place] % (Auto) 1.5 % (0.0-13.0) 07/28/20 05:18 Eos % (Auto) 0.1 % (0.9-2.9) L 07/28/20 05:18 Baso % (Auto) 0.2 % (0.2-1.0) 07/28/20 05:18 Neut # (Auto) 12.0 x10^3/uL (2.2-4.8) H 07/28/20 05:18 Lymph # (Auto) 2.0 X10^3/uL (1.3-2.9) 07/28/20 05:18 [place] # (Auto) 0.2 x10^3/uL (0.3-0.8) L 07/28/20 05:18 Eos # (Auto) 0.0 x10^3/uL (0.0-0.2) 07/28/20 05:18 Baso # (Auto) 0.0 X10^3/uL (0.0-0.1) 07/28/20 05:18 Absolute Nucleated RBC 0.0 /100WBC 07/28/20 05:18 Sodium 139 mmol/L (136-145) 07/28/20 05:18 Corrected Sodium 140 mmol/L (136-145) 07/28/20 05:18 Potassium 4.4 mmol/L (3.5-5.1) 07/28/20 05:18 Chloride 105 mmol/L (98-107) 07/28/20 05:18 Carbon Dioxide 23.8 mmol/L (21-32) 07/28/20 05:18 BUN 18 mg/dL (7-18) 07/28/20 05:18 Creatinine 1.25 mg/dL (0.55-1.02) H 07/28/20 05:18 Est GFR (MDRD) Af Amer 55 (>60) L 07/28/20 05:18 Est GFR (MDRD) Non-Af 46 (>60) L 07/28/20 05:18 Glucose 139 mg/dL (65-99) H 07/28/20 05:18 Lactic Acid 1.3 mmol/L (0.4-2.0) 07/26/20 17:37 Calcium 9.5 mg/dL (8.5-10.1) 07/28/20 05:18 Corrected Calcium 10.1 mg/dL (8.5-10.1) 07/28/20 05:18 Total Bilirubin 0.40 mg/dL (0.2-1.0) 07/28/20 05:18 AST 13 Units/L (15-37) L 07/28/20 05:18 ALT 26 Units/L (12-78) 07/28/20 05:18 Alkaline Phosphatase 80 Units/L (46-116) 07/28/20 05:18 Creatine Kinase 22 Units/L (26-192) L 07/27/20 05:44 CK-MB (CK-2) < 1.0 ng/mL (0-4.0) 07/27/20 05:44 CK/CKMB % Calc 4.6 % (<4) 07/27/20 05:44 Troponin I < 0.02 ng/mL (0-1.5) 07/27/20 05:44 Total Protein 6.2 g/dL (6.4-8.2) L 07/28/20 05:18 Albumin 3.2 g/dL (3.4-5.0) L 07/28/20 05:18 Globulin 3.0 g/dL (2.5-4.5) 07/28/20 05:18 Albumin/Globulin Ratio 1.1 Ratio (1.1-2.1) 07/28/20 05:18 Specimen Type Clean catch urine 07/26/20 17:11 Urine Color Yellow (YELLOW) 07/26/20 17:11 Urine Appearance Clear (CLEAR) 07/26/20 17:11 Urine pH 6.0 (5.0 - 8.0) 07/26/20 17:11 Ur Specific [place] 1.020 (1.000-1.030) 07/26/20 17:11 Urine Protein 3+ (NEGATIVE) 07/26/20 17:11 Urine Glucose (UA) Negative (NEGATIVE) 07/26/20 17:11 Urine Ketones Negative (NEGATIVE) 07/26/20 17:11 Urine Occult Blood 2+ (NEGATIVE) 07/26/20 17:11 Urine Nitrite Negative (NEGATIVE) 07/26/20 17:11 Urine Bilirubin Negative (NEGATIVE) 07/26/20 17:11 Urine Urobilinogen Normal (NORMAL) 07/26/20 17:11 Ur Leukocyte Esterase Negative (NEGATIVE) 07/26/20 17:11 Urine RBC 0-2 /HPF (0-3) 07/26/20 17:11 Urine WBC None seen /HPF (0-5) 07/26/20 17:11 Ur Squamous Epith Cells Few /HPF (NEGATIVE) 07/26/20 17:11 Amorphous Sediment 1+ /HPF (NEGATIVE) 07/26/20 17:11 Urine Bacteria Trace /HPF (NEGATIVE) 07/26/20 17:11 Ur Culture Indicated? No/not indicated 07/26/20 17:11 SARS-CoV-2 (PCR) Negative (NEGATIVE) 07/26/20 19:09 - Plan (1) Pneumonia Status: Acute Qualifiers: Pneumonia type: due to unspecified organism Laterality: left Lung l ocation: lower lobe of lung Qualified Code(s): J18.9 - Pneumonia, unspecified organism Plan: 1/2NS AT 75 ML/HR, INVANZ 1G IV DAILY, AZITHROMYCIN 500MG IV DAILY, DUONEBS Q6H, TESSALON PERLES 200MG PO TID, TUSSIONEX 5ML PO Q12H, ROBITUSSIN DM 10 ML PO QID, SOLU-MEDROL 80MG IV Q8H, LOVENOX 40MG SC DAILY, AND HER HOME MEDICATIONS WERE RESUMED, SUPPLEMENTAL OXYGEN (2) COPD exacerbation Status: Acute
[2020-07-28] MEDS ORDERED: NS 1/2 1000 ML IV 1,000 ML IV ONE (19:22)
[2020-07-28] MEDS: AMBIEN PO SCH (20:36)
[2020-07-28] MEDS: CRESTOR TAB 10 MG PO SCH (20:37)
[2020-07-28] MEDS: INVANZ INJ 1 GM VIAL 1 GM in NS 100 ML IV + SPIKE MINIBAG* 100 ML IV SCH (20:40)
[2020-07-29] MEDS: DUONEB 0.5 MG/3 MG (3 mL) NEB SCH ×3 (00:40→09:40)
[2020-07-29] MEDS: TUSSIONEX PENNKINETIC SUSP PO SCH ×2 (01:22→10:29)
[2020-07-29 04:43] VITALS: BP 160/70
[2020-07-29] MEDS: TESSALON PERLES PO SCH (05:09)
[2020-07-29] MEDS: DIOVAN TAB 80 MG PO SCH (05:09)
[2020-07-29] MEDS: NS 1/2 1000 ML IV 1,000 ML IV SCH (05:09)
[2020-07-29] MEDS: SOLU-Medrol 40 MG VIAL IVP SCH (05:09)
--- NOTE | 2020-07-29 06:31 | RAD ---
HISTORYShortness of breathSTUDYChest AP [id number]/24/2020FINDINGSThe heart is within normal limits in size. The alix are normal. The lungs remain hyperinflated. The right lung is clear. Left upper lobe is clear. There is a linear density in left lower lobe likely subsegmental atelectasis. A small left pleural effusion is likely present. No alveolar infiltrates, areas of consolidation or ground-glass infiltrates identified. Bony thorax is unremarkable.IMPRESSIONNo change hyperinflationRight lung now clearSubsegmental atelectasis left lung base, stableSuspect small left pleural effusionElectronically signed by: NANO STEEN (Jul 29, 2020 06:29:09)
[2020-07-29 06:45] LABS: BASOPHILS % (AUTO) 0.1 % (0.2-1.0); HEMOGLOBIN 11.4 g/dL (12.0-16.0); LYMPHOCYTES # (AUTO) 1.6 X10^3/uL (1.3-2.9); LYMPHOCYTES % (AUTO) 8.8 % (21.0-51.0); MEAN CORPUSCULAR HEMOGLOBIN 27.3 pg (27.0-34.0); MEAN CORPUSCULAR HGB CONC 32.6 g/dL (33.0-35.0); MEAN CORPUSCULAR VOLUME 83.7 fL (80.0-100.0); MEAN PLATELET VOLUME 10.8 fL (7.4-11.0); MONOCYTES # (AUTO) 0.5 x10^3/uL (0.3-0.8); MONOCYTES % (AUTO) 2.9 % (0.0-13.0); NEUTROPHILS # (AUTO) 15.8 x10^3/uL (2.2-4.8); NEUTROPHILS % (AUTO) 88.2 % (42.0-75.0); PLATELET COUNT 251 X10^3/uL (150.0-450.0); RED BLOOD COUNT 4.18 X10^6/uL (3.5-5.4); RED CELL DISTRIBUTION WIDTH 16.3 % (11.6-16.5); WHITE BLOOD COUNT 17.9 X10^3/uL (3.6-10.0)
[2020-07-29 07:01] LABS: ALANINE AMINOTRANSFERASE 22 Units/L (12-78); ALBUMIN 3.1 g/dL (3.4-5.0); ALKALINE PHOSPHATASE 73 Units/L (46-116); ASPARTATE AMINO TRANSFERASE 14 Units/L (15-37); BLOOD UREA NITROGEN 19 mg/dL (7-18); CALCIUM 9.2 mg/dL (8.5-10.1); CARBON DIOXIDE 23.1 mmol/L (21-32); CHLORIDE 107 mmol/L (98-107); COR CA(FOR HYPOALB) 9.9 mg/dL (8.5-10.1); COR NA(FOR HYPERGLY) 142 mmol/L (136-145); CREATININE 1.14 mg/dL (0.55-1.02); SODIUM 141 mmol/L (136-145); TOTAL PROTEIN 5.8 g/dL (6.4-8.2); eGFR NON BLACK RACES 51 (>60)
[2020-07-29 07:27] LABS: BAND NEUTROPHILS % 5 % (0-10); PLATELET MORPHOLOGY COMMENT NORMAL (NORMAL)
[2020-07-29] MEDS ORDERED: LEXAPRO ONE (10:15)
[2020-07-29] MEDS: LEXAPRO PO SCH (10:26)
[2020-07-29] MEDS: CARDIZEM CD 120 MG 24-HR PO SCH (10:26)
[2020-07-29] MEDS: PROTONIX TAB 40 MG PO SCH (10:27)
[2020-07-29] MEDS: LOVENOX INJ 40 MG SYR SC SCH (10:27)
[2020-07-29] MEDS: ROBITUSSIN DM PO SCH (10:27)
[2020-07-29] MEDS: TOPROL XL PO SCH (10:28)
[2020-07-29] MEDS: VSL#3 PO SCH (10:28)
[2020-07-29] MEDS: SINGULAIR TAB 10 MG PO SCH (10:28)
[2020-07-29] MEDS: ZITHROMAX INJ 500 MG VIAL 500 MG in D5W 250 ML IV 250 ML IV SCH ×2 (10:29→10:33)
[2020-08-01] MEDS ORDERED: VITAMIN D (1.25MG) PO SCH (09:00)
== END 2020-07-29 11:00 | disposition home or self-care (01) | DRG 178 ==
LOC: ER 15:26 → MED/SURG 20:51
PROVIDERS: ADMIT Internal Medicine; ATTEND Internal Medicine
DX: R06.02 Shortness of breath; Z20.828 Contact with and (suspected) exposure to other viral communicable diseases; J44.1 Chronic obstructive pulmonary disease with (acute) exacerbation; I10 Essential (primary) hypertension; J15.6 Pneumonia due to other Gram-negative bacteria; F41.8 Other specified anxiety disorders; R53.1 Weakness; R94.4 Abnormal results of kidney function studies

== ENCOUNTER 2020-11-08 13:40 | Inpatient (IN) ==
[2020-11-08] MEDS ORDERED: SOLU-Medrol 125 MG VIAL IVP ONE (13:45)
[2020-11-08] MEDS ORDERED: DUONEB 0.5 MG/3 MG (3 mL) NEB ONE (13:45)
[2020-11-08 13:51] VITALS: BMI 32.8
[2020-11-08 13:55] LABS: ABG ALLEN TEST POS; ABG BASE EXCESS -1.1 mmol/L (-2.0-2.0); ABG HCO3 28.5 mmol/L (22-26)
[2020-11-08] MEDS ORDERED: SOLU-Medrol 125 MG VIAL ONE (13:56)
[2020-11-08 14:00] LABS: BASOPHILS % (AUTO) 0.2 % (0.2-1.0); EOSINOPHILS % (AUTO) 0.1 % (0.9-2.9); HEMATOCRIT 40.1 % (36.0-47.0); HEMOGLOBIN 13.1 g/dL (12.0-16.0); MEAN CORPUSCULAR HGB CONC 32.8 g/dL (33.0-35.0); MEAN CORPUSCULAR VOLUME 85.4 fL (80.0-100.0); MEAN PLATELET VOLUME 9.1 fL (7.4-11.0); MONOCYTES # (AUTO) 1.4 x10^3/uL (0.3-0.8); MONOCYTES % (AUTO) 6.2 % (0.0-13.0); NEUTROPHILS # (AUTO) 18.7 x10^3/uL (2.2-4.8); NEUTROPHILS % (AUTO) 84.5 % (42.0-75.0); PLATELET COUNT 198 X10^3/uL (150.0-450.0); RED CELL DISTRIBUTION WIDTH 16.2 % (11.6-16.5); WHITE BLOOD COUNT 22.2 X10^3/uL (3.6-10.0)
--- NOTE | 2020-11-08 14:03 | DR.SOBA ---
HPI Time Seen Time Seen by Provider: 11/08/20 13:45 HPI Comment HPI Comment: Patient presents with the complaint of shortness of breath. Patient seen in ED 2 days ago for COPD exacerbation. Patient notes that her breathing has gotten worse. PMH PMH Past Medical History: COPD and Hypertension Past Surgical History: Yes Surgical History: Other Family History Family Medical History: Cancer and Heart Failure Social History Do you use any recreational Drugs:: No ROS Review of Systems Constitutional: See HPI Respiratoy: Short of Breath and Wheezing All Other Systems: Reviewed and Negative PE Vital Signs Vitals: Pulse Rate 74 Respiratory Rate 31 Blood Pressure [Right Arm] 160/70 Blood Pressure [Left Arm] 162/72 Blood Pressure 122/60 O2 Sat by Pulse Oximetry 98 General Limitations: Altered Mental Status General Appearance: Lethargic and In Distress Head Head Exam: Normal Inspection, Atraumatic and Normocephalic Eyes Eye exam: EOMI Chest Chest Inspection: Symmetric Chest Wall Rise Respiratory Respiratory Exam: Accessory Muscle Use and Respiratory Distress (mild to moderate) Respiratory Exam: Bilateral: Wheezing Cardiovascular Cardiovascular Exam: Regular Rate, Normal Rhythm and Normal Heart Sounds COURSE Reevaluation 1st: Improved Consultation Call Returned: 14:50 Consultation Comments: Spoke with Dr. Christian who accepts patient for admission to Medicine service [facility] Labs Reviewed Laboratory Results Reviewed?: Yes Result Diagrams: 11/08/20 13:43 11/08/20 13:43 Laboratory: WBC 22.2 X10^3/uL (3.6-10.0) H 11/08/20 13:43 RBC 4.70 X10^6/uL (3.5-5.4) 11/08/20 13:43 Hgb 13.1 g/dL (12.0-16.0) 11/08/20 13:43 Hct 40.1 % (36.0-47.0) 11/08/20 13:43 MCV 85.4 fL (80.0-100.0) 11/08/20 13:43 MCH 28.0 pg (27.0-34.0) 11/08/20 13:43 MCHC 32.8 g/dL (33.0-35.0) L 11/08/20 13:43 RDW 16.2 % (11.6-16.5) 11/08/20 13:43 Plt Count 198 X10^3/uL (150.0-450.0) 11/08/20 13:43 Plt Count Comment Adequate (ADEQUATE) 11/08/20 13:43 MPV 9.1 fL (7.4-11.0) 11/08/20 13:43 Neut % (Auto) 84.5 % (42.0-75.0) H 11/08/20 13:43 Lymph % (Auto) 9.0 % (21.0-51.0) L 11/08/20 13:43 [place] % (Auto) 6.2 % (0.0-13.0) 11/08/20 13:43 Eos % (Auto) 0.1 % (0.9-2.9) L 11/08/20 13:43 Baso % (Auto) 0.2 % (0.2-1.0) 11/08/20 13:43 Neut # (Auto) 18.7 x10^3/uL (2.2-4.8) H 11/08/20 13:43 Lymph # (Auto) 2.0 X10^3/uL (1.3-2.9) 11/08/20 13:43 [place] # (Auto) 1.4 x10^3/uL (0.3-0.8) H 11/08/20 13:43 Eos # (Auto) 0.0 x10^3/uL (0.0-0.2) 11/08/20 13:43 Baso # (Auto) 0.0 X10^3/uL (0.0-0.1) 11/08/20 13:43 Absolute Nucleated RBC 0.1 /100WBC 11/08/20 13:43 Total Counted 100 11/08/20 13:43 Neutrophils % (Manual) 71 % (39-76) 11/08/20 13:43 Band Neutrophils % 8 % (0-10) 11/08/20 13:43 Lymphocytes % (Manual) 12 % (13-43) L 11/08/20 13:43 Monocytes % (Manual) 7 % (4-9) 11/08/20 13:43 Metamyelocytes % 2 11/08/20 13:43 Giant Platelets Rare 11/08/20 13:43 Plt Morphology Comment Abnormal (NORMAL) A 11/08/20 13:43 RBC Morphology Normal (NORMAL) 11/08/20 13:43 Sample Site Right radial 11/08/20 13:48 ABG pH 7.200 (7.35-7.45) L 11/08/20 13:48 ABG pCO2 73.0 mmHg (35.0-45.0) H* 11/08/20 13:48 ABG pO2 72.0 mmHg (80.0-100.0) L 11/08/20 13:48 ABG HCO3 28.5 mmol/L (22-26) H 11/08/20 13:48 ABG O2 Saturation 90.0 % (90-100) 11/08/20 13:48 ABG Base Excess -1.1 mmol/L (-2.0-2.0) 11/08/20 13:48 Keyur Test Pos 11/08/20 13:48 A-a Gradient 65.0 mmHg 11/08/20 13:48 FiO2 32.0 11/08/20 13:48 Blood Gas Comments Los well aw 11/08/20 13:48 Sodium 133 mmol/L (136-145) L 11/08/20 13:43 Corrected Sodium 134 mmol/L (136-145) L 11/08/20 13:43 Potassium 4.2 mmol/L (3.5-5.1) 11/08/20 13:43 Chloride 97 mmol/L (98-107) L 11/08/20 13:43 Carbon Dioxide 30.2 mmol/L (21-32) 11/08/20 13:43 BUN 30 mg/dL (7-18) H 11/08/20 13:43 Creatinine 1.54 mg/dL (0.55-1.02) H 11/08/20 13:43 Est GFR (MDRD) Af Amer 43 (>60) L 11/08/20 13:43 Est GFR (MDRD) Non-Af 36 (>60) L 11/08/20 13:43 Glucose 132 mg/dL (65-99) H 11/08/20 13:43 Calcium 10.4 mg/dL (8.5-10.1) H 11/08/20 13:43 Corrected Calcium 11.0 mg/dL (8.5-10.1) H 11/08/20 13:43 Magnesium 2.7 mg/dL (1.7-2.9) 11/08/20 13:43 Total Bilirubin 0.90 mg/dL (0.2-1.0) 11/08/20 13:43 AST 22 Units/L (15-37) 11/08/20 13:43 ALT 46 Units/L (12-78) 11/08/20 13:43 Alkaline Phosphatase 103 Units/L (46-116) 11/08/20 13:43 Creatine Kinase 103 Units/L (26-192) 11/08/20 13:43 CK-MB (CK-2) 7.2 ng/mL (0-4.0) H* 11/08/20 13:43 CK/CKMB % Calc 7.0 % (<4) 11/08/20 13:43 Troponin I 0.06 ng/mL (0-1.5) 11/08/20 13:43 B-Natriuretic Peptide 293 pg/mL (0-79) H 11/08/20 13:43 Total Protein 7.1 g/dL (6.4-8.2) 11/08/20 13:43 Albumin 3.3 g/dL (3.4-5.0) L 11/08/20 13:43 Globulin 3.8 g/dL (2.5-4.5) 11/08/20 13:43 Albumin/Globulin Ratio 0.9 Ratio (1.1-2.1) L 11/08/20 13:43 Specimen Type Catherized urine 11/08/20 14:04 Urine Color Yellow (YELLOW) 11/08/20 14:04 Urine Appearance Slightly hazy (CLEAR) 11/08/20 14:04 Urine pH 5.0 (5.0 - 8.0) 11/08/20 14:04 Ur Specific [place] 1.030 (1.000-1.030) 11/08/20 14:04 Urine Protein 4+ (NEGATIVE) 11/08/20 14:04 Urine Glucose (UA) Negative (NEGATIVE) 11/08/20 14:04 Urine Ketones Negative (NEGATIVE) 11/08/20 14:04 Urine Occult Blood 4+ (NEGATIVE) 11/08/20 14:04 Urine Nitrite Negative (NEGATIVE) 11/08/20 14:04 Urine Bilirubin Negative (NEGATIVE) 11/08/20 14:04 Urine Urobilinogen Normal (NORMAL) 11/08/20 14:04 Ur Leukocyte Esterase Negative (NEGATIVE) 11/08/20 14:04 Urine RBC 10-20 /HPF (0-3) A 11/08/20 14:04 Urine WBC None seen /HPF (0-5) 11/08/20 14:04 Ur Squamous Epith Cells Rare /HPF (NEGATIVE) 11/08/20 14:04 Urine Bacteria 2+ /HPF (NEGATIVE) 11/08/20 14:04 Fine Granular Casts Few /LPF (NEGATIVE) 11/08/20 14:04 Ur Culture Indicated? Yes/culture set up 11/08/20 14:04 XRAY X-ray Results: HISTORY Shortness of breath STUDY Single-view chest COMPARISON 11/06/2020 and 07/28/2020 FINDINGS The trachea is midline. The cardiac silhouette is enlarged with a tortuous thoracic aorta. Chronic interstitial lung changes are observed without focal infiltrate or effusion. The bony thorax is unremarkable. IMPRESSION No acute cardiopulmonary disease. Electronically signed by: NEVILLE BOOKER (Nov 08, 2020 14:41:33) Opioid Opioid Risk Tool Age (Natalio box if 16-45): No History of Preadolescent Sexual Abuse: No Total: 0 Total Score Risk Category: Low Risk Copyright: Herminio DON predicting aberrant behaviors Diagnosis Discharge Problem: COPD exacerbation
[2020-11-08 14:13] LABS: CALCIUM 10.4 mg/dL (8.5-10.1); CARBON DIOXIDE 30.2 mmol/L (21-32); CREATININE 1.54 mg/dL (0.55-1.02); TROPONIN I 0.06 ng/mL (0-1.5)
[2020-11-08 14:18] LABS: BAND NEUTROPHILS % 8 % (0-10); METAMYELOCYTES % 2
[2020-11-08 14:19] LABS: GIANT PLATELET RARE; PLATELET MORPHOLOGY COMMENT ABNORMAL (NORMAL)
[2020-11-08 14:21] LABS: BILIRUBIN,URINE NEGATIVE (NEGATIVE); BLOOD/HEMOGLOBIN,URINE 4+ (NEGATIVE); GLUCOSE, URINE NEGATIVE (NEGATIVE); KETONES,URINE NEGATIVE (NEGATIVE); LEUKOCYTE ESTERASE ,URINE NEGATIVE (NEGATIVE); NITRITES,URINE NEGATIVE (NEGATIVE); PROTEIN,URINE 4+ (NEGATIVE); UROBILINOGEN,URINE NORMAL (NORMAL)
[2020-11-08 14:24] LABS: APPEARANCE,URINE SLIGHTLY HAZY (CLEAR); COLOR,URINE YELLOW (YELLOW)
[2020-11-08 14:32] LABS: BACTERIA,URINE 2+ /HPF (NEGATIVE); SQUAMOUS EPITHELIAL CELL,UR RARE /HPF (NEGATIVE)
[2020-11-08 14:33] LABS: FINE GRANULAR CASTS,URINE FEW /LPF (NEGATIVE)
[2020-11-08 14:36] LABS: ALBUMIN 3.3 g/dL (3.4-5.0); MAGNESIUM 2.7 mg/dL (1.7-2.9); TOTAL PROTEIN 7.1 g/dL (6.4-8.2)
[2020-11-08 14:38] LABS: CREATINE KINASE MB 7.2 ng/mL (0-4.0)
--- NOTE | 2020-11-08 14:45 | RAD ---
HISTORYShortness of breathSTUDYSingle-view [id number]/05/2021 and 07/28/2020FINDINGSThe trachea is midline. The cardiac silhouette is enlarged with a tortuous thoracic aorta. Chronic interstitial lung changes are observed without focal infiltrate or effusion. The bony thorax is unremarkable.IMPRESSIONNo acute cardiopulmonary disease.Electronically signed by: NEVILLE BOOKER (Nov 08, 2020 14:41:33)
[2020-11-08] MEDS ORDERED: NS 1000 ML 1,000 ML ONE (15:11)
[2020-11-08] MEDS ORDERED: ZITHROMAX INJ 500 MG VIAL IV ONE (15:11)
[2020-11-08] MEDS ORDERED: NS 250 ML IV 250 ML IV ONE (15:12)
[2020-11-08] MEDS: ZITHROMAX INJ 500 MG VIAL 500 MG in NS 250 ML IV 250 ML IV SCH (15:18)
[2020-11-08] MEDS: NS 1000 ML 1,000 ML IV SCH (15:18)
[2020-11-08] MEDS: DUONEB 0.5 MG/3 MG (3 mL) NEB SCH ×2 (17:27→20:40)
[2020-11-08] MEDS ORDERED: ZOFRAN INJ 4 MG VIAL IVP PRN (18:15)
[2020-11-08 18:50] LABS: CKMB % 9.4 % (<4); TROPONIN I 0.07 ng/mL (0-1.5)
[2020-11-08 19:00] LABS: CREATINE KINASE MB 8.3 ng/mL (0-4.0)
[2020-11-08] MEDS: SOLU-Medrol 125 MG VIAL IVP SCH (20:43)
[2020-11-09 01:23] LABS: CKMB % 8.7 % (<4); TROPONIN I 0.09 ng/mL (0-1.5)
[2020-11-09] MEDS: DUONEB 0.5 MG/3 MG (3 mL) NEB SCH ×5 (01:25→20:45)
[2020-11-09 01:26] LABS: CREATINE KINASE MB 6.8 ng/mL (0-4.0)
[2020-11-09] MEDS: NS 1000 ML 1,000 ML IV SCH ×3 (03:53→21:38)
[2020-11-09 05:45] LABS: ABG BASE EXCESS -1.7 mmol/L (-2.0-2.0); ABG HCO3 25.5 mmol/L (22-26)
[2020-11-09 05:46] LABS: ABG ALLEN TEST POS
[2020-11-09 06:51] LABS: BASOPHILS % (AUTO) 0.2 % (0.2-1.0); HEMATOCRIT 35.6 % (36.0-47.0); HEMOGLOBIN 11.6 g/dL (12.0-16.0); LYMPHOCYTES % (AUTO) 5.1 % (21.0-51.0); MEAN CORPUSCULAR HEMOGLOBIN 27.7 pg (27.0-34.0); MEAN CORPUSCULAR HGB CONC 32.5 g/dL (33.0-35.0); MEAN CORPUSCULAR VOLUME 85.3 fL (80.0-100.0); MEAN PLATELET VOLUME 9.8 fL (7.4-11.0); MONOCYTES # (AUTO) 0.5 x10^3/uL (0.3-0.8); MONOCYTES % (AUTO) 2.7 % (0.0-13.0); NEUTROPHILS # (AUTO) 18.3 x10^3/uL (2.2-4.8); PLATELET COUNT 145 X10^3/uL (150.0-450.0); RED BLOOD COUNT 4.18 X10^6/uL (3.5-5.4); RED CELL DISTRIBUTION WIDTH 16.5 % (11.6-16.5); WHITE BLOOD COUNT 19.9 X10^3/uL (3.6-10.0)
[2020-11-09 06:57] LABS: LACTIC ACID 0.6 mmol/L (0.4-2.0)
[2020-11-09 06:59] LABS: ALANINE AMINOTRANSFERASE 42 Units/L (12-78); ALBUMIN 2.8 g/dL (3.4-5.0); ALKALINE PHOSPHATASE 100 Units/L (46-116); ASPARTATE AMINO TRANSFERASE 25 Units/L (15-37); BLOOD UREA NITROGEN 44 mg/dL (7-18); CALCIUM 9.9 mg/dL (8.5-10.1); CARBON DIOXIDE 23.4 mmol/L (21-32); CHLORIDE 101 mmol/L (98-107); COR CA(FOR HYPOALB) 10.9 mg/dL (8.5-10.1); CREATININE 2.25 mg/dL (0.55-1.02); SODIUM 136 mmol/L (136-145); TOTAL PROTEIN 6.3 g/dL (6.4-8.2); eGFR NON BLACK RACES 23 (>60)
[2020-11-09 07:32] LABS: BAND NEUTROPHILS % 13 % (0-10); PLATELET MORPHOLOGY COMMENT NORMAL (NORMAL)
[2020-11-09] MEDS ORDERED: TESSALON PERLES PO PRN (08:07)
[2020-11-09] MEDS ORDERED: ATIVAN TAB 0.5 MG PO PRN (08:07)
[2020-11-09] MEDS ORDERED: DUONEB 0.5 MG/3 MG (3 mL) NEB ONE (08:16)
[2020-11-09] MEDS: SOLU-Medrol 125 MG VIAL IVP SCH ×4 (08:37→21:38)
[2020-11-09] MEDS: ZITHROMAX INJ 500 MG VIAL 500 MG in NS 250 ML IV 250 ML IV SCH (08:37)
[2020-11-09] MEDS ORDERED: NORCO 5/325 MG TAB PO PRN (08:48)
[2020-11-09] MEDS ORDERED: MORPHINE SULFATE JET NEB NEB PRN (08:52)
[2020-11-09] MEDS ORDERED: PROTONIX TAB 40 MG PO SCH (09:00)
--- NOTE | 2020-11-09 10:00 | DR.H&P ---
H&P History & Physical for Day of: H&P Date: 11/09/20 Chief Complaint Chief Complaint: worsening SOB and cough Allergies Allergies Allergy/AdvReac Type Severity Reaction Status Date / Time fluticasone furoate Allergy Verified 11/08/20 15:02 [From Trelegy Ellipta] levofloxacin Allergy Verified 11/08/20 14:05 Penicillins Allergy Verified 11/08/20 14:05 umeclidinium Allergy Verified 11/08/20 15:02 [From Trelegy Ellipta] vilanterol Allergy Verified 11/08/20 15:02 [From Trelegy Ellipta] vancomycin AdvReac Verified 11/08/20 14:05 History of Present Illness History of Present Illness: Ms Bueno is a 65y/o female with Severe COPD on home O2 2-3L , HTN, anxiety , GERD and HLD presented with worsening dyspnea. Patient was seen in the ED on 11/06/20 for COPD exacerbation and treated as outpatient. She presented again yesterday with lethargy and worsening dyspnea. Patient was placed on BiPAP overnight due to hypercapnia. She is currently on 3L NC. She appears to have labored breathing and in distress. at bedside. Denies sick contact or exposure. Denies fever or chills. No GI Sx. reports patient has had a poor appetite for over a week, not been eating due to cough and SOB. Labs: WBC 19.9 (22.2), Hgb 11.6 Plt 145 BUN/Cr: 44/2.25 (1.54), D-dimer negative BNP 293 Trop 0.06, 0.07, 0.09 AB.29/53/83/25 with sats 95% COVID (-) CXR: no acute process Plan: place patient back on BiPAP after breakfast and repeat ABG, start solumedrol 60mg q6. Continue Azithromycin, bronchodilators. Morphine nebs for air hunger. Resume home medications. Patient appears anxious and takes ativan 0.5 mg TID prn. Heparin BID ppx for DVT. Will increase NS to 125cc/hr. Monitor AM labs/imaging. Monitor resp status closely. Time spent for clinical assessment, physical exam, reviewing labs/imaging, decision making and documentation greater than 75 mins. Past Medical History Past Medical History: COPD and Hypertension Past Surgical History Surgical History: Other Family History Family Medical History: Cancer, Coronary Artery Disease and Heart Failure Social History Does patient currently use any type of tobacco product: Yes Have you used tobacco products in the last 12 months: Yes Type of Tobacco Use: Cigarettes Does any household member use tobacco: Yes Alcohol Use: None Drug Use: None Prescription drug monitoring program results: PDMP was not reviewed Medications Home Medications: fluticasone furoate [From Trelegy Ellipta] Allergy (Verified 11/08/20 15:02) levofloxacin Allergy (Verified 11/08/20 14:05) Penicillins Allergy (Verified 11/08/20 14:05) umeclidinium [From Trelegy Ellipta] Allergy (Verified 11/08/20 15:02) vilanterol [From Trelegy Ellipta] Allergy (Verified 11/08/20 15:02) vancomycin Adverse Reaction (Verified 11/08/20 14:05) CONTINUE taking the following medications albuterol sulfate [Ventolin HFA] 1 inh INHALATION BID PRN 11/08/20 [History] aspirin [Aspir-81] 81 mg PO DAILY 11/08/20 [History] benzonatate 200 mg PO TID PRN 11/08/20 [History] hydrocodone-acetaminophen 1 tab PO BID PRN 11/08/20 [History] hydrocodone-chlorpheniramine [Tussionex] 5 ml PO BID PRN 11/08/20 [History] prednisone 20 mg PO BID 11/08/20 [History] promethazine [Phenergan] 25 mg PO QID PRN 11/08/20 [History] rosuvastatin 40 mg PO HS 11/08/20 [History] Labs Result Diagrams: 11/09/20 05:25 11/09/20 05:25 Labs: Laboratory WBC 19.9 X10^3/uL (3.6-10.0) H 11/09/20 05:25 RBC 4.18 X10^6/uL (3.5-5.4) 11/09/20 05:25 Hgb 11.6 g/dL (12.0-16.0) L 11/09/20 05:25 Hct 35.6 % (36.0-47.0) L 11/09/20 05:25 MCV 85.3 fL (80.0-100.0) 11/09/20 05:25 MCH 27.7 pg (27.0-34.0) 11/09/20 05:25 MCHC 32.5 g/dL (33.0-35.0) L 11/09/20 05:25 RDW 16.5 % (11.6-16.5) 11/09/20 05:25 Plt Count 145 X10^3/uL (150.0-450.0) L 11/09/20 05:25 Plt Count Comment Decreased (ADEQUATE) A 11/09/20 05:25 MPV 9.8 fL (7.4-11.0) 11/09/20 05:25 Neut % (Auto) 92.0 % (42.0-75.0) H 11/09/20 05:25 Lymph % (Auto) 5.1 % (21.0-51.0) L 11/09/20 05:25 [place] % (Auto) 2.7 % (0.0-13.0) 11/09/20 05:25 Eos % (Auto) 0.0 % (0.9-2.9) L 11/09/20 05:25 Baso % (Auto) 0.2 % (0.2-1.0) 11/09/20 05:25 Neut # (Auto) 18.3 x10^3/uL (2.2-4.8) H 11/09/20 05:25 Lymph # (Auto) 1.0 X10^3/uL (1.3-2.9) L 11/09/20 05:25 [place] # (Auto) 0.5 x10^3/uL (0.3-0.8) 11/09/20 05:25 Eos # (Auto) 0.0 x10^3/uL (0.0-0.2) 11/09/20 05:25 Baso # (Auto) 0.0 X10^3/uL (0.0-0.1) 11/09/20 05:25 Absolute Nucleated RBC 0.1 /100WBC 11/09/20 05:25 Total Counted 100 11/09/20 05:25 Neutrophils % (Manual) 80 % (39-76) H 11/09/20 05:25 Band Neutrophils % 13 % (0-10) H 11/09/20 05:25 Lymphocytes % (Manual) 4 % (13-43) L 11/09/20 05:25 Monocytes % (Manual) 3 % (4-9) L 11/09/20 05:25 Metamyelocytes % 2 11/08/20 13:43 Giant Platelets Rare 11/08/20 13:43 Plt Morphology Comment Normal (NORMAL) 11/09/20 05:25 RBC Morphology Normal (NORMAL) 11/09/20 05:25 Sample Site Rra 11/09/20 05:40 ABG pH 7.290 (7.35-7.45) L 11/09/20 05:40 ABG pCO2 53.0 mmHg (35.0-45.0) H* 11/09/20 05:40 ABG pO2 83.0 mmHg (80.0-100.0) 11/09/20 05:40 ABG HCO3 25.5 mmol/L (22-26) 11/09/20 05:40 ABG O2 Saturation 95.0 % (90-100) 11/09/20 05:40 ABG Base Excess -1.7 mmol/L (-2.0-2.0) 11/09/20 05:40 Keyur Test Pos 11/09/20 05:40 A-a Gradient 65.0 mmHg 11/09/20 05:40 FiO2 30.0 11/09/20 05:40 Blood Gas Comments Los well mt 11/09/20 05:40 Sodium 136 mmol/L (136-145) 11/09/20 05:25 Corrected Sodium TNP 11/09/20 05:25 Potassium 4.6 mmol/L (3.5-5.1) 11/09/20 05:25 Chloride 101 mmol/L (98-107) 11/09/20 05:25 Carbon Dioxide 23.4 mmol/L (21-32) 11/09/20 05:25 BUN 44 mg/dL (7-18) H 11/09/20 05:25 Creatinine 2.25 mg/dL (0.55-1.02) H 11/09/20 05:25 Est GFR (MDRD) Af Amer 28 (>60) L 11/09/20 05:25 Est GFR (MDRD) Non-Af 23 (>60) L 11/09/20 05:25 Glucose 99 mg/dL (65-99) 11/09/20 05:25 Lactic Acid 0.6 mmol/L (0.4-2.0) 11/09/20 05:25 Calcium 9.9 mg/dL (8.5-10.1) 11/09/20 05:25 Corrected Calcium 10.9 mg/dL (8.5-10.1) H 11/09/20 05:25 Magnesium 2.7 mg/dL (1.7-2.9) 11/08/20 13:43 Total Bilirubin 0.80 mg/dL (0.2-1.0) 11/09/20 05:25 AST 25 Units/L (15-37) 11/09/20 05:25 ALT 42 Units/L (12-78) 11/09/20 05:25 Alkaline Phosphatase 100 Units/L (46-116) 11/09/20 05:25 Creatine Kinase 78 Units/L (26-192) 11/09/20 00:12 CK-MB (CK-2) 6.8 ng/mL (0-4.0) H* 11/09/20 00:12 CK/CKMB % Calc 8.7 % (<4) 11/09/20 00:12 Troponin I 0.09 ng/mL (0-1.5) 11/09/20 00:12 B-Natriuretic Peptide 293 pg/mL (0-79) H 11/08/20 13:43 Total Protein 6.3 g/dL (6.4-8.2) L 11/09/20 05:25 Albumin 2.8 g/dL (3.4-5.0) L 11/09/20 05:25 Globulin 3.5 g/dL (2.5-4.5) 11/09/20 05:25 Albumin/Globulin Ratio 0.8 Ratio (1.1-2.1) L 11/09/20 05:25 Specimen Type Catherized urine 11/08/20 14:04 Urine Color Yellow (YELLOW) 11/08/20 14:04 Urine Appearance Slightly hazy (CLEAR) 11/08/20 14:04 Urine pH 5.0 (5.0 - 8.0) 11/08/20 14:04 Ur Specific [place] 1.030 (1.000-1.030) 11/08/20 14:04 Urine Protein 4+ (NEGATIVE) 11/08/20 14:04 Urine Glucose (UA) Negative (NEGATIVE) 11/08/20 14:04 Urine Ketones Negative (NEGATIVE) 11/08/20 14:04 Urine Occult Blood 4+ (NEGATIVE) 11/08/20 14:04 Urine Nitrite Negative (NEGATIVE) 11/08/20 14:04 Urine Bilirubin Negative (NEGATIVE) 11/08/20 14:04 Urine Urobilinogen Normal (NORMAL) 11/08/20 14:04 Ur Leukocyte Esterase Negative (NEGATIVE) 11/08/20 14:04 Urine RBC 10-20 /HPF (0-3) A 11/08/20 14:04 Urine WBC None seen /HPF (0-5) 11/08/20 14:04 Ur Squamous Epith Cells Rare /HPF (NEGATIVE) 11/08/20 14:04 Urine Bacteria 2+ /HPF (NEGATIVE) 11/08/20 14:04 Fine Granular Casts Few /LPF (NEGATIVE) 11/08/20 14:04 Ur Culture Indicated? Yes/culture set up 11/08/20 14:04 SARS CoV-2 RNA Rapid GALINDO Negative (NEGATIVE) 11/08/20 14:21 Review of Systems Constitutional: Weakness and Malaise Eyes: No Symptoms Reported ENT: No Symptoms Reported Respiratory: Cough, Shortness of Breath, SOB with Excertion and Pleuritic Pain Cardiovascular: No Symptoms Reported Gastrointestinal: No Symptoms Reported Genitourinary: No Symptoms Reported Musculoskeletal: No Symptoms Reported Skin: No Symptoms Reported Neurological: No Symptoms Reported Physical Exam Vital Signs: Temperature 98.2 F Pulse Rate [Right Apical] 66 Pulse Rate 80 Respiratory Rate 21 Blood Pressure [Right Arm] 109/57 Blood Pressure [Left Arm] 162/72 Blood Pressure 113/62 O2 Sat by Pulse Oximetry 93 Oriented: Unable to test Nose: Normal Throat: Dry Respiratory: Diminished Throughout and Wheezes Throughout Cardiovascular: Tachycardia Auscultation: Bowel Sounds: Normal Palpation: Normal Tenderness: Normal Skin: Decreased [place] Musculoskeletal: Normal Psychiatric: Anxiety Mood Description: Anxious Affect: Anxious Speech Pattern: Delayed Assessment/Plan (1) Acute respiratory failure with hypoxia and hypercapnia: Status: Acute (2) COPD exacerbation: Status: Acute (3) Chronic kidney disease (CKD): Qualifiers: Chronic kidney disease stage: stage 3 (moderate) Qualified Code(s): N18.3 - Chronic kidney disease, stage 3 (moderate) Status: Chronic (4) Cardiomegaly: Status: Chronic (5) HTN (hypertension): Qualifiers: Hypertension type: essential hypertension Qualified Code(s): I10 - Essential (primary) hypertension Status: Acute Review H&P Reviewed: Yes Patient was examined?: Yes
[2020-11-09] MEDS: HEPARIN SODIUM INJ 5000 UNITS SC SCH ×2 (10:51→21:30)
[2020-11-09] MEDS: ASPIRIN EC 81 MG PO SCH (10:52)
[2020-11-09] MEDS: CARDIZEM CD 120 MG 24-HR PO SCH (10:52)
[2020-11-09] MEDS ORDERED: CRESTOR TAB 10 MG PO SCH (21:00)
[2020-11-09] MEDS: AMBIEN PO SCH (22:26)
[2020-11-09 22:33] LABS: ABG BASE EXCESS -8.7 mmol/L (-2.0-2.0); ABG HCO3 22.1 mmol/L (22-26)
[2020-11-09 22:34] LABS: ABG ALLEN TEST POS
[2020-11-09 23:02] LABS: CALCIUM 9.2 mg/dL (8.5-10.1); CARBON DIOXIDE 23.7 mmol/L (21-32); CREATININE 4.04 mg/dL (0.55-1.02); TROPONIN I 0.15 ng/mL (0-1.5)
[2020-11-09 23:31] LABS: ALBUMIN 2.6 g/dL (3.4-5.0); CKMB % 11.3 % (<4); COR CA(FOR HYPOALB) 10.3 mg/dL (8.5-10.1); TOTAL PROTEIN 6.1 g/dL (6.4-8.2)
[2020-11-09 23:32] LABS: CREATINE KINASE MB 11.7 ng/mL (0-4.0)
[2020-11-10] MEDS ORDERED: LASIX IVP ONE (01:12)
[2020-11-10] MEDS ORDERED: LASIX ONE (01:40)
[2020-11-10] MEDS: SOLU-Medrol 125 MG VIAL IVP SCH ×4 (02:33→20:58)
[2020-11-10] MEDS: NS 1000 ML 1,000 ML IV SCH (05:34)
[2020-11-10 05:40] LABS: ABG BASE EXCESS -7.6 mmol/L (-2.0-2.0); ABG HCO3 20.4 mmol/L (22-26)
[2020-11-10 05:42] LABS: ABG ALLEN TEST POS
[2020-11-10] MEDS: DUONEB 0.5 MG/3 MG (3 mL) NEB SCH ×3 (05:45→21:28)
[2020-11-10 06:13] LABS: BASOPHILS % (AUTO) 0.1 % (0.2-1.0); EOSINOPHILS % (AUTO) 0.1 % (0.9-2.9); HEMATOCRIT 31.9 % (36.0-47.0); HEMOGLOBIN 10.6 g/dL (12.0-16.0); LYMPHOCYTES # (AUTO) 1.5 X10^3/uL (1.3-2.9); MEAN CORPUSCULAR HEMOGLOBIN 28.5 pg (27.0-34.0); MEAN CORPUSCULAR HGB CONC 33.4 g/dL (33.0-35.0); MEAN CORPUSCULAR VOLUME 85.5 fL (80.0-100.0); MEAN PLATELET VOLUME 9.4 fL (7.4-11.0); MONOCYTES # (AUTO) 0.7 x10^3/uL (0.3-0.8); MONOCYTES % (AUTO) 2.9 % (0.0-13.0); NEUTROPHILS % (AUTO) 90.9 % (42.0-75.0); PLATELET COUNT 130 X10^3/uL (150.0-450.0); RED BLOOD COUNT 3.73 X10^6/uL (3.5-5.4); RED CELL DISTRIBUTION WIDTH 16.8 % (11.6-16.5); WHITE BLOOD COUNT 25.3 X10^3/uL (3.6-10.0)
--- NOTE | 2020-11-10 06:30 | RAD ---
HISTORYCHF ; F/USTUDYCHEST, 1 [id number]/08/2021.TECHNIQUEAP view of the chestFINDINGSCardiac and mediastinal contours are within normal limits. Similar appearance of mid to lower lung predominant mild interstitial opacities. No definite pleural effusion or pneumothorax.IMPRESSIONNo significant change.Electronically signed by: Ian Rolon (Nov 10, 2020 06:28:05)
[2020-11-10 06:36] LABS: ALBUMIN 2.5 g/dL (3.4-5.0); CALCIUM 9.1 mg/dL (8.5-10.1); CARBON DIOXIDE 21.6 mmol/L (21-32); COR CA(FOR HYPOALB) 10.3 mg/dL (8.5-10.1); CREATININE 4.33 mg/dL (0.55-1.02); TOTAL PROTEIN 5.8 g/dL (6.4-8.2)
[2020-11-10 07:09] LABS: BAND NEUTROPHILS % 8 % (0-10); METAMYELOCYTES % 3; MYELOCYTES % 1; PLATELET MORPHOLOGY COMMENT NORMAL (NORMAL)
[2020-11-10 07:22] LABS: CKMB % 10.2 % (<4); TROPONIN I 0.12 ng/mL (0-1.5)
[2020-11-10] MEDS ORDERED: LASIX IVP SCH (09:00)
[2020-11-10] MEDS: HEPARIN SODIUM INJ 5000 UNITS SC SCH ×2 (09:46→21:32)
[2020-11-10] MEDS: ROCEPHIN VIAL 1 GRAM 1 G in NS 100 ML IV + SPIKE MINIBAG* 100 ML IV SCH ×2 (09:46→09:53)
--- NOTE | 2020-11-10 10:01 | PCM.PROG ---
Progress Note Progress Note for Day of Date of Exam: 11/10/20 Subjective Subjective: Patient seen at bedside. Overnight, patient's respiratory status worsened. Labs were drawn including BMP and ABG. Patient was noted to have worsening hypercapnia and placed on BiPAP. She also had elevated Creatinine and BNP and was given IV lasix 20 mg once due to concern for pulmonary edema. This morning, she is still on BiPAP. reports patient is not comfortable wearing it. She has not eaten much since being in the hospital. Patient has a hx of CAD but not had any stents placed, no diagnosis of CHF. Patient's UOP has been very low since yesterday. Overnight, she only had 10cc of urine. Labs: WBC 25.3 Hgb 10.6 Plt 130 Na:138 K: 5.1 BUN/Cr: 79/4.33 (2.25) Glucose 123 BNP 657 Last AB.21/51/90/20.4 on BiPAP FiO2 30% Trop 0.15-0.12 Urine Cx: [place] pna CXR: similar appearance of mid to lower lung predominant mild interstitial opacities. No definite pleural effusion or pneumothorax. Currently on BiPAP FiO2 30% with sats > 90% Plan: Will start lasix 40 mg IV daily, monitor UOP, strict I/Os. Patient does have a gomes placed. Get echo to eval LV function. Wean off BiPAP as tolerated. Start Rocephin, continue azithromycin. Continue solumedrol and bronchodilators. Will change ativan to IV since patient is not taking oral meds on Bipap. Continue telemetry. Monitor AM labs and imaging. Time spent for clinical assessment, reviewing labs/imaging, physical exam, decision making and documentation greater than 75 mins. Past Medical Family Social History Past Med/Fam/Surg Hx: No changes since H&P Allergies: Allergies fluticasone furoate [From Trelegy Ellipta] Allergy (Verified 11/08/20 15:02) levofloxacin Allergy (Verified 11/08/20 14:05) Penicillins Allergy (Verified 11/08/20 14:05) umeclidinium [From Trelegy Ellipta] Allergy (Verified 11/08/20 15:02) vilanterol [From Trelegy Ellipta] Allergy (Verified 11/08/20 15:02) vancomycin Adverse Reaction (Verified 11/08/20 14:05) Review of Systems ROS: No change since H&P Vital Signs and I&O's Vital Signs: Temperature 97.8 F Pulse Rate [Right Apical] 75 Pulse Rate 67 Respiratory Rate 25 Blood Pressure [Right Arm] 147/67 Blood Pressure [Left Arm] 162/72 Blood Pressure 113/62 O2 Sat by Pulse Oximetry 95 Intake and Output: Intake & Output 11/07/20 11/08/20 11/09/20 11/10/20 23:59 23:59 23:59 23:59 Intake Total 644 / 644 1159 / 1159 139 / 139 Output Total 100 / 100 95 / 95 10 / 10 Balance 544 / 544 1064 / 1064 129 / 129 Physical Exam Oriented: Unable to test Eyes: Normal Nose: Normal Throat: Dry Respiratory: Generalized, Rales and Rhonchi Cardiovascular: Normal Auscultation: Bowel Sounds: Normal Tenderness: Normal Skin: Decreased Turgur Musculoskeletal: Normal Psychiatric: Anxiety Mood Description: Anxious Affect: Anxious Speech Pattern: Artificially Ventilated (on Bipap ) Laboratory and Diagnostics Result Diagrams: 11/10/20 04:10 11/10/20 04:10 Labs: 11/08/20 14:04 Urine,Catheterized Urine Culture - Final Klebsiella Pneumoniae Laboratory WBC 25.3 X10^3/uL (3.6-10.0) H 11/10/20 04:10 RBC 3.73 X10^6/uL (3.5-5.4) 11/10/20 04:10 Hgb 10.6 g/dL (12.0-16.0) L 11/10/20 04:10 Hct 31.9 % (36.0-47.0) L 11/10/20 04:10 MCV 85.5 fL (80.0-100.0) 11/10/20 04:10 MCH 28.5 pg (27.0-34.0) 11/10/20 04:10 MCHC 33.4 g/dL (33.0-35.0) 11/10/20 04:10 RDW 16.8 % (11.6-16.5) H 11/10/20 04:10 Plt Count 130 X10^3/uL (150.0-450.0) L 11/10/20 04:10 Plt Count Comment Decreased (ADEQUATE) A 11/10/20 04:10 MPV 9.4 fL (7.4-11.0) 11/10/20 04:10 Neut % (Auto) 90.9 % (42.0-75.0) H 11/10/20 04:10 Lymph % (Auto) 6.0 % (21.0-51.0) L 11/10/20 04:10 [place] % (Auto) 2.9 % (0.0-13.0) 11/10/20 04:10 Eos % (Auto) 0.1 % (0.9-2.9) L 11/10/20 04:10 Baso % (Auto) 0.1 % (0.2-1.0) L 11/10/20 04:10 Neut # (Auto) 23.0 x10^3/uL (2.2-4.8) H 11/10/20 04:10 Lymph # (Auto) 1.5 X10^3/uL (1.3-2.9) 11/10/20 04:10 [place] # (Auto) 0.7 x10^3/uL (0.3-0.8) 11/10/20 04:10 Eos # (Auto) 0.0 x10^3/uL (0.0-0.2) 11/10/20 04:10 Baso # (Auto) 0.0 X10^3/uL (0.0-0.1) 11/10/20 04:10 Absolute Nucleated RBC 0.2 /100WBC 11/10/20 04:10 Total Counted 100 11/10/20 04:10 Neutrophils % (Manual) 76 % (39-76) 11/10/20 04:10 Band Neutrophils % 8 % (0-10) 11/10/20 04:10 Lymphocytes % (Manual) 6 % (13-43) L 11/10/20 04:10 Monocytes % (Manual) 6 % (4-9) 11/10/20 04:10 Metamyelocytes % 3 11/10/20 04:10 Myelocytes % 1 11/10/20 04:10 Giant Platelets Rare 11/08/20 13:43 Plt Morphology Comment Normal (NORMAL) 11/10/20 04:10 RBC Morphology Normal (NORMAL) 11/10/20 04:10 Sample Site Rra 11/10/20 05:37 ABG pH 7.210 (7.35-7.45) L 11/10/20 05:37 ABG pCO2 51.0 mmHg (35.0-45.0) H* 11/10/20 05:37 ABG pO2 90.0 mmHg (80.0-100.0) 11/10/20 05:37 ABG HCO3 20.4 mmol/L (22-26) L 11/10/20 05:37 ABG O2 Saturation 95.0 % (90-100) 11/10/20 05:37 ABG Base Excess -7.6 mmol/L (-2.0-2.0) L 11/10/20 05:37 Keyur Test Pos 11/10/20 05:37 A-a Gradient 60.0 mmHg 11/10/20 05:37 FiO2 30.0 11/10/20 05:37 Blood Gas Comments [place] well mt 11/10/20 05:37 Sodium 138 mmol/L (136-145) 11/10/20 04:10 Corrected Sodium 139 mmol/L (136-145) 11/10/20 04:10 Potassium 5.1 mmol/L (3.5-5.1) 11/10/20 04:10 Chloride 103 mmol/L (98-107) 11/10/20 04:10 Carbon Dioxide 21.6 mmol/L (21-32) 11/10/20 04:10 BUN 79 mg/dL (7-18) H 11/10/20 04:10 Creatinine 4.33 mg/dL (0.55-1.02) H 11/10/20 04:10 Est GFR (MDRD) Af Amer 13 (>60) L 11/10/20 04:10 Est GFR (MDRD) Non-Af 11 (>60) L 11/10/20 04:10 Glucose 123 mg/dL (65-99) H 11/10/20 04:10 Lactic Acid 0.6 mmol/L (0.4-2.0) 11/09/20 05:25 Calcium 9.1 mg/dL (8.5-10.1) 11/10/20 04:10 Corrected Calcium 10.3 mg/dL (8.5-10.1) H 11/10/20 04:10 Magnesium 2.7 mg/dL (1.7-2.9) 11/08/20 13:43 Total Bilirubin 0.70 mg/dL (0.2-1.0) 11/10/20 04:10 AST 32 Units/L (15-37) 11/10/20 04:10 ALT 41 Units/L (12-78) 11/10/20 04:10 Alkaline Phosphatase 109 Units/L (46-116) 11/10/20 04:10 Creatine Kinase 108 Units/L (26-192) 11/10/20 04:10 CK-MB (CK-2) 11.0 ng/mL (0-4.0) H* 11/10/20 04:10 CK/CKMB % Calc 10.2 % (<4) 11/10/20 04:10 Troponin I 0.12 ng/mL (0-1.5) 11/10/20 04:10 B-Natriuretic Peptide 657 pg/mL (0-79) H* 11/09/20 22:30 Total Protein 5.8 g/dL (6.4-8.2) L 11/10/20 04:10 Albumin 2.5 g/dL (3.4-5.0) L 11/10/20 04:10 Globulin 3.3 g/dL (2.5-4.5) 11/10/20 04:10 Albumin/Globulin Ratio 0.8 Ratio (1.1-2.1) L 11/10/20 04:10 Specimen Type Catherized urine 11/08/20 14:04 Urine Color Yellow (YELLOW) 11/08/20 14:04 Urine Appearance Slightly hazy (CLEAR) 11/08/20 14:04 Urine pH 5.0 (5.0 - 8.0) 11/08/20 14:04 Ur Specific [place] 1.030 (1.000-1.030) 11/08/20 14:04 Urine Protein 4+ (NEGATIVE) 11/08/20 14:04 Urine Glucose (UA) Negative (NEGATIVE) 11/08/20 14:04 Urine Ketones Negative (NEGATIVE) 11/08/20 14:04 Urine Occult Blood 4+ (NEGATIVE) 11/08/20 14:04 Urine Nitrite Negative (NEGATIVE) 11/08/20 14:04 Urine Bilirubin Negative (NEGATIVE) 11/08/20 14:04 Urine Urobilinogen Normal (NORMAL) 11/08/20 14:04 Ur Leukocyte Esterase Negative (NEGATIVE) 11/08/20 14:04 Urine RBC 10-20 /HPF (0-3) A 11/08/20 14:04 Urine WBC None seen /HPF (0-5) 11/08/20 14:04 Ur Squamous Epith Cells Rare /HPF (NEGATIVE) 11/08/20 14:04 Urine Bacteria 2+ /HPF (NEGATIVE) 11/08/20 14:04 Fine Granular Casts Few /LPF (NEGATIVE) 11/08/20 14:04 Ur Culture Indicated? Yes/culture set up 11/08/20 14:04 SARS CoV-2 RNA Rapid GALINDO Negative (NEGATIVE) 11/08/20 14:21 Plan (1) Acute respiratory failure with hypoxia and hypercapnia: Status: Acute (2) COPD exacerbation: Status: Acute (3) Chronic kidney disease (CKD): Status: Chronic Qualifiers: Chronic kidney disease stage: stage 3 (moderate) Qualified Code(s): N18.3 - Chronic kidney disease, stage 3 (moderate) (4) Cardiomegaly: Status: Chronic (5) HTN (hypertension): Status: Acute Qualifiers: Hypertension type: essential hypertension Qualified Code(s): I10 - Essential (primary) hypertension (6) Urinary tract infection due to Klebsiella species: Status: Acute
[2020-11-10] MEDS ORDERED: ATIVAN INJ 2 MG VIAL IVP PRN (10:14)
[2020-11-10] MEDS: ZITHROMAX INJ 500 MG VIAL 500 MG in NS 250 ML IV 250 ML IV SCH (11:47)
[2020-11-10] MEDS: ASPIRIN EC 81 MG PO SCH (13:33)
[2020-11-10] MEDS: CARDIZEM CD 120 MG 24-HR PO SCH (13:33)
[2020-11-10] MEDS: PROTONIX INJ 40 MG VIAL IVP SCH (13:38)
[2020-11-10 15:50] LABS: ABG BASE EXCESS -8.4 mmol/L (-2.0-2.0); ABG HCO3 20.2 mmol/L (22-26)
[2020-11-10 15:51] LABS: ABG ALLEN TEST POS
--- NOTE | 2020-11-10 16:30 | US ---
EXAM: BILATERAL RENAL/RETROPERITONEAL ULTRASOUNDHISTORY: Worsening renal failure. Hypertension. COPD.TECHNIQUE: The kidneys and urinary bladder were interrogated with a curvilinear transducer, employing grayscale imaging, duplex Doppler and color-flow Doppler imaging.COMPARISON: None.FINDINGS:Both kidneys are normal in size. The right kidney measures approximately 11.1 cm x 5.4 cm x 5.8 cm, and the left kidney measures approximately 10.5 cm x 5.3 cm left 6.9 cm. The renal cortical thickness is within normal limits bilaterally, measuring approximately 1.9 cm on the right and 1.8 cm on the left.The kidneys are diffusely echogenic in keeping with medical renal disease; DDX includes (but is not limited to) diabetes mellitus, glomerulonephritis, ATN, acute interstitial nephritis, and AIDS nephropathy.There is no hydronephrosis, shadowing calculus, renal mass, or perinephric fluid collections seen.The urinary bladder is empty (secondary to a Tony balloon catheter, and therefore not adequately evaluated with this exam. No discernible intracystic mass lesion is seen.IMPRESSION:1. Echogenic kidneys, in keeping with sequela of medical renal disease in the appropriate clinical setting. See DDx above.2. Otherwise unremarkable renal/retroperitoneal ultrasound as described above.Electronically signed by: Francois Moses (Nov 10, 2020 16:29:32)
[2020-11-10] MEDS ORDERED: CRESTOR TAB 10 MG PO SCH (21:00)
[2020-11-10] MEDS: AMBIEN PO SCH (21:31)
[2020-11-11] MEDS: SOLU-Medrol 125 MG VIAL IVP SCH ×2 (03:13→10:28)
[2020-11-11] MEDS: DUONEB 0.5 MG/3 MG (3 mL) NEB SCH (05:27)
[2020-11-11 06:30] LABS: BASOPHILS % (AUTO) 0.1 % (0.2-1.0); HEMATOCRIT 27.8 % (36.0-47.0); HEMOGLOBIN 9.3 g/dL (12.0-16.0); LYMPHOCYTES # (AUTO) 0.7 X10^3/uL (1.3-2.9); LYMPHOCYTES % (AUTO) 2.7 % (21.0-51.0); MEAN CORPUSCULAR HEMOGLOBIN 28.5 pg (27.0-34.0); MEAN CORPUSCULAR HGB CONC 33.3 g/dL (33.0-35.0); MEAN CORPUSCULAR VOLUME 85.6 fL (80.0-100.0); MEAN PLATELET VOLUME 9.3 fL (7.4-11.0); MONOCYTES # (AUTO) 0.3 x10^3/uL (0.3-0.8); MONOCYTES % (AUTO) 1.2 % (0.0-13.0); NEUTROPHILS # (AUTO) 25.2 x10^3/uL (2.2-4.8); PLATELET COUNT 112 X10^3/uL (150.0-450.0); RED BLOOD COUNT 3.24 X10^6/uL (3.5-5.4); RED CELL DISTRIBUTION WIDTH 16.6 % (11.6-16.5); WHITE BLOOD COUNT 26.2 X10^3/uL (3.6-10.0)
[2020-11-11 06:35] LABS: ALBUMIN 2.5 g/dL (3.4-5.0); CALCIUM 8.7 mg/dL (8.5-10.1); CARBON DIOXIDE 20.2 mmol/L (21-32); COR CA(FOR HYPOALB) 9.9 mg/dL (8.5-10.1); CREATININE 6.38 mg/dL (0.55-1.02); MAGNESIUM 3.2 mg/dL (1.7-2.9); TOTAL PROTEIN 5.7 g/dL (6.4-8.2)
[2020-11-11 07:15] LABS: BAND NEUTROPHILS % 6 % (0-10); MYELOCYTES % 2; PLATELET MORPHOLOGY COMMENT NORMAL (NORMAL)
[2020-11-11] MEDS ORDERED: NS 1000 ML 1,000 ML IV SCH (08:00)
[2020-11-11 08:39] VITALS: BP 126/60
[2020-11-11] MEDS ORDERED: D50W ABBOJECT SYR IV ONE (08:45)
[2020-11-11] MEDS ORDERED: HumuLIN R IV ONE (08:46)
[2020-11-11] MEDS ORDERED: KAYEXALATE SUSP RECTAL SCH (09:00)
[2020-11-11 09:46] LABS: ABG BASE EXCESS -9.7 mmol/L (-2.0-2.0); ABG HCO3 18.7 mmol/L (22-26)
--- NOTE | 2020-11-11 09:53 | PCM.PROG ---
Progress Note Progress Note for Day of Date of Exam: 11/11/20 Subjective Subjective: Patient seen at bedside, no acute overnight events. Patient remained on BiPAP all day yesterday and at night. states she has not eaten anything. Her UOP has been very low in 24 hrs. She did receive second dose of lasix 40 mg IV yesterday morning. She has been afebrile. Labs: WBC 26 Hgb 9.3 Plt 112 Na:133 K: 5.6 BUN/Cr: 109/6.38 Glucose 118 Mg 3.2 BNP 176 Renal U/S: no hydronephrosis, masses or lesions, suggestive of medical disease ddx include ATN, diabetic nephropathy ECHO: EF 50-55%, normal IVC, moderate pulmonary HTN, normal global wall motion Urine Cx: k[place] pna CXR: similar appearance of mid to lower lung predominant mild interstitial opacities. No definite pleural effusion or pneumothorax. Currently on BiPAP FiO2 30% with sats > 90% Plan: Due to patient's worsening renal function, discussed with about transferring patient to higher level of care for nephrology evaluation and possible dialysis. Patient verbalized understanding and agrees with transfer. Charge nurse aware and will contact transfer line for [facility]. Patient is currently on BiPAP. Will repeat ABG this morning. Continue Rocephin and Azithromycin. Continue duonebs, bronchodilators and solumedrol. Will give IV insulin 10 units + D50 for hyperkalemia. Patient in critical condition, awaiting transfer. Time spent for clinical assessment, reviewing labs/imaging, physical exam, decision making and documentation greater than 75 mins. Past Medical Family Social History Past Med/Fam/Surg Hx: No changes since H&P Allergies: Allergies fluticasone furoate [From Trelegy Ellipta] Allergy (Verified 11/08/20 15:02) levofloxacin Allergy (Verified 11/08/20 14:05) Penicillins Allergy (Verified 11/08/20 14:05) umeclidinium [From Trelegy Ellipta] Allergy (Verified 11/08/20 15:02) vilanterol [From Trelegy Ellipta] Allergy (Verified 11/08/20 15:02) vancomycin Adverse Reaction (Verified 11/08/20 14:05) Review of Systems ROS: No change since H&P Vital Signs and I&O's Vital Signs: Temperature 97.3 F Pulse Rate [Right Brachial] 67 Pulse Rate [Right Apical] 62 Pulse Rate 70 Respiratory Rate 21 Blood Pressure [Right Arm] 126/60 Blood Pressure [Left Arm] 162/72 Blood Pressure 113/62 O2 Sat by Pulse Oximetry 99 Intake and Output: Intake & Output 11/08/20 11/09/20 11/10/20 11/11/20 23:59 23:59 23:59 23:59 Intake Total 644 / 644 1159 / 1159 813 / 813 149 / 149 Output Total 100 / 100 95 / 95 70 / 70 Balance 544 / 544 1064 / 1064 743 / 743 139 / 139 Physical Exam Oriented: Unable to test Nose: Normal Throat: Dry Respiratory: Generalized, Diminished and Rhonchi Cardiovascular: Normal and Edema (slight 1+ LE edema noted ) Auscultation: Bowel Sounds: Normal Tenderness: Normal Skin: Decreased Turgur Psychiatric: Anxiety Mood Description: Anxious Affect: Anxious Speech Pattern: Artificially Ventilated (on Bipap ) Laboratory and Diagnostics Result Diagrams: 11/11/20 06:00 11/11/20 06:00 Labs: 11/08/20 14:19 Blood Blood Culture - Preliminary 11/08/20 14:10 Blood Blood Culture - Preliminary 11/08/20 14:04 Urine,Catheterized Urine Culture - Final Klebsiella Pneumoniae Laboratory WBC 26.2 X10^3/uL (3.6-10.0) H 11/11/20 06:00 RBC 3.24 X10^6/uL (3.5-5.4) L 11/11/20 06:00 Hgb 9.3 g/dL (12.0-16.0) L 11/11/20 06:00 Hct 27.8 % (36.0-47.0) L 11/11/20 06:00 MCV 85.6 fL (80.0-100.0) 11/11/20 06:00 MCH 28.5 pg (27.0-34.0) 11/11/20 06:00 MCHC 33.3 g/dL (33.0-35.0) 11/11/20 06:00 RDW 16.6 % (11.6-16.5) H 11/11/20 06:00 Plt Count 112 X10^3/uL (150.0-450.0) L 11/11/20 06:00 Plt Count Comment Decreased (ADEQUATE) A 11/11/20 06:00 MPV 9.3 fL (7.4-11.0) 11/11/20 06:00 Neut % (Auto) 96.0 % (42.0-75.0) H 11/11/20 06:00 Lymph % (Auto) 2.7 % (21.0-51.0) L 11/11/20 06:00 [place] % (Auto) 1.2 % (0.0-13.0) 11/11/20 06:00 Eos % (Auto) 0.0 % (0.9-2.9) L 11/11/20 06:00 Baso % (Auto) 0.1 % (0.2-1.0) L 11/11/20 06:00 Neut # (Auto) 25.2 x10^3/uL (2.2-4.8) H 11/11/20 06:00 Lymph # (Auto) 0.7 X10^3/uL (1.3-2.9) L 11/11/20 06:00 [place] # (Auto) 0.3 x10^3/uL (0.3-0.8) 11/11/20 06:00 Eos # (Auto) 0.0 x10^3/uL (0.0-0.2) 11/11/20 06:00 Baso # (Auto) 0.0 X10^3/uL (0.0-0.1) 11/11/20 06:00 Absolute Nucleated RBC 0.1 /100WBC 11/11/20 06:00 Total Counted 100 11/11/20 06:00 Neutrophils % (Manual) 85 % (39-76) H 11/11/20 06:00 Band Neutrophils % 6 % (0-10) 11/11/20 06:00 Lymphocytes % (Manual) 5 % (13-43) L 11/11/20 06:00 Monocytes % (Manual) 2 % (4-9) L 11/11/20 06:00 Metamyelocytes % 3 11/10/20 04:10 Myelocytes % 2 11/11/20 06:00 Giant Platelets Rare 11/08/20 13:43 Plt Morphology Comment Normal (NORMAL) 11/11/20 06:00 RBC Morphology Normal (NORMAL) 11/11/20 06:00 Sample Site Lbra 11/11/20 09:39 ABG pH 7.180 (7.35-7.45) L* 11/11/20 09:39 ABG pCO2 50.0 mmHg (35.0-45.0) H 11/11/20 09:39 ABG pO2 110.0 mmHg (80.0-100.0) H 11/11/20 09:39 ABG HCO3 18.7 mmol/L (22-26) L 11/11/20 09:39 ABG O2 Saturation 97.0 % (90-100) 11/11/20 09:39 ABG Base Excess -9.7 mmol/L (-2.0-2.0) L 11/11/20 09:39 Keyur Test N/a 11/11/20 09:39 A-a Gradient 41.0 mmHg 11/11/20 09:39 FiO2 30.0 11/11/20 09:39 Blood Gas Comments Pt trisha well elj 11/11/20 09:39 Sodium 133 mmol/L (136-145) L 11/11/20 06:00 Corrected Sodium 133 mmol/L (136-145) L 11/11/20 06:00 Potassium 5.6 mmol/L (3.5-5.1) H 11/11/20 06:00 Chloride 102 mmol/L (98-107) 11/11/20 06:00 Carbon Dioxide 20.2 mmol/L (21-32) L 11/11/20 06:00 BUN 109 mg/dL (7-18) H 11/11/20 06:00 Creatinine 6.38 mg/dL (0.55-1.02) H 11/11/20 06:00 Est GFR (MDRD) Af Amer 8 (>60) L 11/11/20 06:00 Est GFR (MDRD) Non-Af 7 (>60) L 11/11/20 06:00 Glucose 118 mg/dL (65-99) H 11/11/20 06:00 Lactic Acid 0.4 mmol/L (0.4-2.0) 11/11/20 08:13 Calcium 8.7 mg/dL (8.5-10.1) 11/11/20 06:00 Corrected Calcium 9.9 mg/dL (8.5-10.1) 11/11/20 06:00 Magnesium 3.2 mg/dL (1.7-2.9) H 11/11/20 06:00 Total Bilirubin 0.40 mg/dL (0.2-1.0) 11/11/20 06:00 AST 27 Units/L (15-37) 11/11/20 06:00 ALT 38 Units/L (12-78) 11/11/20 06:00 Alkaline Phosphatase 122 Units/L (46-116) H 11/11/20 06:00 Creatine Kinase 108 Units/L (26-192) 11/10/20 04:10 CK-MB (CK-2) 11.0 ng/mL (0-4.0) H* 11/10/20 04:10 CK/CKMB % Calc 10.2 % (<4) 11/10/20 04:10 Troponin I 0.12 ng/mL (0-1.5) 11/10/20 04:10 B-Natriuretic Peptide 176 pg/mL (0-79) H 11/11/20 06:00 Total Protein 5.7 g/dL (6.4-8.2) L 11/11/20 06:00 Albumin 2.5 g/dL (3.4-5.0) L 11/11/20 06:00 Globulin 3.2 g/dL (2.5-4.5) 11/11/20 06:00 Albumin/Globulin Ratio 0.8 Ratio (1.1-2.1) L 11/11/20 06:00 Specimen Type Catherized urine 11/08/20 14:04 Urine Color Yellow (YELLOW) 11/08/20 14:04 Urine Appearance Slightly hazy (CLEAR) 11/08/20 14:04 Urine pH 5.0 (5.0 - 8.0) 11/08/20 14:04 Ur Specific [place] 1.030 (1.000-1.030) 11/08/20 14:04 Urine Protein 4+ (NEGATIVE) 11/08/20 14:04 Urine Glucose (UA) Negative (NEGATIVE) 11/08/20 14:04 Urine Ketones Negative (NEGATIVE) 11/08/20 14:04 Urine Occult Blood 4+ (NEGATIVE) 11/08/20 14:04 Urine Nitrite Negative (NEGATIVE) 11/08/20 14:04 Urine Bilirubin Negative (NEGATIVE) 11/08/20 14:04 Urine Urobilinogen Normal (NORMAL) 11/08/20 14:04 Ur Leukocyte Esterase Negative (NEGATIVE) 11/08/20 14:04 Urine RBC 10-20 /HPF (0-3) A 11/08/20 14:04 Urine WBC None seen /HPF (0-5) 11/08/20 14:04 Ur Squamous Epith Cells Rare /HPF (NEGATIVE) 11/08/20 14:04 Urine Bacteria 2+ /HPF (NEGATIVE) 11/08/20 14:04 Fine Granular Casts Few /LPF (NEGATIVE) 11/08/20 14:04 Ur Culture Indicated? Yes/culture set up 11/08/20 14:04 SARS CoV-2 RNA Rapid GALINDO Negative (NEGATIVE) 11/08/20 14:21 Plan (1) ATN (acute tubular necrosis): Status: Acute (2) Acute respiratory failure with hypoxia and hypercapnia: Status: Acute (3) COPD exacerbation: Status: Acute (4) Urinary tract infection due to Klebsiella species: Status: Acute (5) Metabolic acidosis: Status: Acute (6) Hyperkalemia: Status: Acute (7) Hypermagnesemia: Status: Acute (8) Lethargy: Status: Acute (9) Thrombocytopenia: Status: Acute (10) Anemia: Status: Acute Qualifiers: Anemia type: unspecified type Qualified Code(s): D64.9 - Anemia, unspecified (11) Cardiomegaly: Status: Chronic (12) HTN (hypertension): Status: Acute Qualifiers: Hypertension type: essential hypertension Qualified Code(s): I10 - Essential (primary) hypertension
[2020-11-11] MEDS: ASPIRIN EC 81 MG PO SCH (10:18)
[2020-11-11] MEDS: PROTONIX INJ 40 MG VIAL IVP SCH (10:18)
[2020-11-11] MEDS: HEPARIN SODIUM INJ 5000 UNITS SC SCH (10:19)
[2020-11-11] MEDS: CARDIZEM CD 120 MG 24-HR PO SCH (10:19)
[2020-11-11] MEDS: ZITHROMAX INJ 500 MG VIAL 500 MG in NS 250 ML IV 250 ML IV SCH (10:24)
--- NOTE | 2020-11-11 11:38 | W.DIS.FURT ---
Summary of Discharge Discharge Summary of Date Date of Exam: 11/11/20 Admission Date Date of Admission: 11/08/20 Admission Diagnosis Patient Problems (Updated 11/11/20 @ 11:37 by Lennie Christian) COPD exacerbation (Acute) J44.1 Hospital Course: Ms Bueno is a 65y/o female with Severe COPD on home O2 2-3L , HTN, anxiety , GERD and HLD presented with worsening dyspnea. Patient was seen in the ED on 11/06 for COPD exacerbation and treated as outpatient. She presented again on 11/08/20 with lethargy and worsening dyspnea. Patient was placed on BiPAP overnight due to hypercapnia. at bedside. Denies sick contact or exposure. Denies fever or chills. No GI Sx. reports patient has had a poor appetite for over a week, not been eating due to cough and SOB. On admission, patient had elevated WBC. She also had elevated Creatinine at 1.54, negative d-dimer and COVID. ABG was suggestive of hypoxia with hypercapnia. CXR was negative for infection or effusion. UA was suggestive of infection and culture was sent. She was started on azithromycin and IV Rocephin along with solumedrol and bronchodilators. She was also started on hydration with normal saline. Patient was placed back on nasal cannula the following day but continued to have hypercapnia so she was on BiPAP prn. Urine culture grew Klebseilla pna. Patient's renal function continued to worsen during her stay. Patient had elev ated BNP and appeared to have some LE edema so IVF were stopped and she was given IV lasix. Patient's urine output was very low. Patient has poor IV access so gen surgery was consulted for central line placement. She had right femoral line placed. Her ABG continued to show acidosis even with improvement in CO2 likely a combination of respiratory and metabolic. Patient needs higher level of care with nephrology evaluation for dialysis. Patient's potassium was 5.6 and she was given IV insulin + D50. Patient's WBC elevated could be 2/2 to steroids, patient was afebrile. Patient's vitals remained stable. She was saturating more than 90%. Patient was stable for transfer. Hand off was given to critical care provider at [facility] and patient will be transferred there. Time spent for clinical assessment, reviewing labs/imaging, physical exam, decision making and coordinating care with another provider and documentation greater than 75 mins. Vital Signs: Vital Signs (72 hours) 11/08/20 13:43 11/08/20 13:45 11/08/20 13:48 Temperature Pulse Rate 75 76 Pulse Rate [Right Apical] Pulse Rate [Right Brachial] Respiratory Rate 35 H Blood Pressure 224/92 224/92 Blood Pressure [Right Arm] O2 Sat by Pulse Oximetry 90 L 78 L 95 11/08/20 13:57 11/08/20 13:58 11/08/20 13:59 Temperature Pulse Rate 74 74 73 Pulse Rate [Right Apical] Pulse Rate [Right Brachial] Respiratory Rate 34 H 31 H Blood Pressure 186/78 176/77 192/82 Blood Pressure [Right Arm] O2 Sat by Pulse Oximetry 98 98 98 11/08/20 14:00 11/08/20 14:01 11/08/20 14:15 Temperature Pulse Rate 73 74 74 Pulse Rate [Right Apical] Pulse Rate [Right Brachial] Respiratory Rate Blood Pressure 122/60 Blood Pressure [Right Arm] O2 Sat by Pulse Oximetry 98 98 11/08/20 14:30 11/08/20 14:45 11/08/20 15:00 Temperature Pulse Rate 72 73 70 Pulse Rate [Right Apical] Pulse Rate [Right Brachial] Respiratory Rate 23 25 H 21 Blood Pressure 157/71 Blood Pressure [Right Arm] O2 Sat by Pulse Oximetry 97 97 98 11/08/20 15:01 11/08/20 15:15 11/08/20 15:30 Temperature Pulse Rate 70 68 67 Pulse Rate [Right Apical] Pulse Rate [Right Brachial] Respiratory Rate 21 Blood Pressure 109/70 128/60 Blood Pressure [Right Arm] O2 Sat by Pulse Oximetry 98 98 96 11/08/20 15:45 11/08/20 16:00 11/08/20 17:27 Temperature Pulse Rate 66 68 87 Pulse Rate [Right Apical] Pulse Rate [Right Brachial] Respiratory Rate 20 25 H Blood Pressure 113/62 Blood Pressure [Right Arm] O2 Sat by Pulse Oximetry 97 97 96 11/08/20 20:00 11/08/20 20:40 11/09/20 00:00 Temperature 97.4 F L 98.3 F Pulse Rate 63 Pulse Rate [Right Apical] 79 79 Pulse Rate [Right Brachial] Respiratory Rate 34 H 24 Blood Pressure Blood Pressure [Right Arm] 188/92 123/57 O2 Sat by Pulse Oximetry 96 95 96 11/09/20 01:25 11/09/20 04:00 11/09/20 05:49 Temperature 98.2 F Pulse Rate 79 68 Pulse Rate [Right Apical] 66 Pulse Rate [Right Brachial] Respiratory Rate 21 Blood Pressure Blood Pressure [Right Arm] 109/57 O2 Sat by Pulse Oximetry 96 96 95 11/09/20 08:00 11/09/20 08:37 11/09/20 12:00 Temperature 98.8 F 98.0 F Pulse Rate 80 Pulse Rate [Right Apical] 86 78 Pulse Rate [Right Brachial] Respiratory Rate 32 H 28 H Blood Pressure Blood Pressure [Right Arm] 120/90 121/57 O2 Sat by Pulse Oximetry 91 L 93 L 95 11/09/20 14:10 11/09/20 16:00 11/09/20 20:00 Temperature 97.5 F L 97.3 F L Pulse Rate 79 Pulse Rate [Right Apical] 66 67 Pulse Rate [Right Brachial] Respiratory Rate 22 22 Blood Pressure Blood Pressure [Right Arm] 143/64 98/49 O2 Sat by Pulse Oximetry 94 L 96 100 11/09/20 20:45 11/10/20 00:00 11/10/20 04:00 Temperature 96.8 F L 96.7 F L Pulse Rate 65 Pulse Rate [Right Apical] 59 L 62 Pulse Rate [Right Brachial] Respiratory Rate 21 25 H Blood Pressure Blood Pressure [Right Arm] 99/51 117/53 O2 Sat by Pulse Oximetry 96 95 97 11/10/20 05:45 11/10/20 08:00 11/10/20 12:00 Temperature 97.8 F 97.9 F Pulse Rate 67 Pulse Rate [Right Apical] 75 64 Pulse Rate [Right Brachial] Respiratory Rate 38 H 24 Blood Pressure Blood Pressure [Right Arm] 147/67 127/61 O2 Sat by Pulse Oximetry 96 95 97 11/10/20 16:00 11/10/20 20:00 11/10/20 21:30 Temperature 97.6 F 97.4 F L Pulse Rate 70 Pulse Rate [Right Apical] 72 74 Pulse Rate [Right Brachial] Respiratory Rate 29 H 27 H Blood Pressure Blood Pressure [Right Arm] 131/61 132/58 O2 Sat by Pulse Oximetry 98 100 100 11/11/20 00:00 11/11/20 04:00 11/11/20 08:00 Temperature 97.5 F L 98.3 F 97.3 F L Pulse Rate Pulse Rate [Right Apical] 67 62 Pulse Rate [Right Brachial] 67 Respiratory Rate Blood Pressure Blood Pressure [Right Arm] 134/63 131/61 126/60 O2 Sat by Pulse Oximetry 100 100 99 Labs: Laboratory Last Values WBC 26.2 X10^3/uL (3.6-10.0) H 11/11/20 06:00 RBC 3.24 X10^6/uL (3.5-5.4) L 11/11/20 06:00 Hgb 9.3 g/dL (12.0-16.0) L 11/11/20 06:00 Hct 27.8 % (36.0-47.0) L 11/11/20 06:00 MCV 85.6 fL (80.0-100.0) 11/11/20 06:00 MCH 28.5 pg (27.0-34.0) 11/11/20 06:00 MCHC 33.3 g/dL (33.0-35.0) 11/11/20 06:00 RDW 16.6 % (11.6-16.5) H 11/11/20 06:00 Plt Count 112 X10^3/uL (150.0-450.0) L 11/11/20 06:00 Plt Count Comment Decreased (ADEQUATE) A 11/11/20 06:00 MPV 9.3 fL (7.4-11.0) 11/11/20 06:00 Neut % (Auto) 96.0 % (42.0-75.0) H 11/11/20 06:00 Lymph % (Auto) 2.7 % (21.0-51.0) L 11/11/20 06:00 [place] % (Auto) 1.2 % (0.0-13.0) 11/11/20 06:00 Eos % (Auto) 0.0 % (0.9-2.9) L 11/11/20 06:00 Baso % (Auto) 0.1 % (0.2-1.0) L 11/11/20 06:00 Neut # (Auto) 25.2 x10^3/uL (2.2-4.8) H 11/11/20 06:00 Lymph # (Auto) 0.7 X10^3/uL (1.3-2.9) L 11/11/20 06:00 [place] # (Auto) 0.3 x10^3/uL (0.3-0.8) 11/11/20 06:00 Eos # (Auto) 0.0 x10^3/uL (0.0-0.2) 11/11/20 06:00 Baso # (Auto) 0.0 X10^3/uL (0.0-0.1) 11/11/20 06:00 Absolute Nucleated RBC 0.1 /100WBC 11/11/20 06:00 Total Counted 100 11/11/20 06:00 Neutrophils % (Manual) 85 % (39-76) H 11/11/20 06:00 Band Neutrophils % 6 % (0-10) 11/11/20 06:00 Lymphocytes % (Manual) 5 % (13-43) L 11/11/20 06:00 Monocytes % (Manual) 2 % (4-9) L 11/11/20 06:00 Metamyelocytes % 3 11/10/20 04:10 Myelocytes % 2 11/11/20 06:00 Giant Platelets Rare 11/08/20 13:43 Plt Morphology Comment Normal (NORMAL) 11/11/20 06:00 RBC Morphology Normal (NORMAL) 11/11/20 06:00 Sample Site [facility] 11/11/20 09:39 ABG pH 7.180 (7.35-7.45) L* 11/11/20 09:39 ABG pCO2 50.0 mmHg (35.0-45.0) H 11/11/20 09:39 ABG pO2 110.0 mmHg (80.0-100.0) H 11/11/20 09:39 ABG HCO3 18.7 mmol/L (22-26) L 11/11/20 09:39 ABG O2 Saturation 97.0 % (90-100) 11/11/20 09:39 ABG Base Excess -9.7 mmol/L (-2.0-2.0) L 11/11/20 09:39 Keyur Test N/a 11/11/20 09:39 A-a Gradient 41.0 mmHg 11/11/20 09:39 FiO2 30.0 11/11/20 09:39 Blood Gas Comments Pt trisha well elj 11/11/20 09:39 Sodium 133 mmol/L (136-145) L 11/11/20 06:00 Corrected Sodium 133 mmol/L (136-145) L 11/11/20 06:00 Potassium 5.6 mmol/L (3.5-5.1) H 11/11/20 06:00 Chloride 102 mmol/L (98-107) 11/11/20 06:00 Carbon Dioxide 20.2 mmol/L (21-32) L 11/11/20 06:00 BUN 109 mg/dL (7-18) H 11/11/20 06:00 Creatinine 6.38 mg/dL (0.55-1.02) H 11/11/20 06:00 Est GFR (MDRD) Af Amer 8 (>60) L 11/11/20 06:00 Est GFR (MDRD) Non-Af 7 (>60) L 11/11/20 06:00 Glucose 118 mg/dL (65-99) H 11/11/20 06:00 Lactic Acid 0.4 mmol/L (0.4-2.0) 11/11/20 08:13 Calcium 8.7 mg/dL (8.5-10.1) 11/11/20 06:00 Corrected Calcium 9.9 mg/dL (8.5-10.1) 11/11/20 06:00 Magnesium 3.2 mg/dL (1.7-2.9) H 11/11/20 06:00 Total Bilirubin 0.40 mg/dL (0.2-1.0) 11/11/20 06:00 AST 27 Units/L (15-37) 11/11/20 06:00 ALT 38 Units/L (12-78) 11/11/20 06:00 Alkaline Phosphatase 122 Units/L (46-116) H 11/11/20 06:00 Creatine Kinase 108 Units/L (26-192) 11/10/20 04:10 CK-MB (CK-2) 11.0 ng/mL (0-4.0) H* 11/10/20 04:10 CK/CKMB % Calc 10.2 % (<4) 11/10/20 04:10 Troponin I 0.12 ng/mL (0-1.5) 11/10/20 04:10 B-Natriuretic Peptide 176 pg/mL (0-79) H 11/11/20 06:00 Total Protein 5.7 g/dL (6.4-8.2) L 11/11/20 06:00 Albumin 2.5 g/dL (3.4-5.0) L 11/11/20 06:00 Globulin 3.2 g/dL (2.5-4.5) 11/11/20 06:00 Albumin/Globulin Ratio 0.8 Ratio (1.1-2.1) L 11/11/20 06:00 Specimen Type Catherized urine 11/08/20 14:04 Urine Color Yellow (YELLOW) 11/08/20 14:04 Urine Appearance Slightly hazy (CLEAR) 11/08/20 14:04 Urine pH 5.0 (5.0 - 8.0) 11/08/20 14:04 Ur Specific [place] 1.030 (1.000-1.030) 11/08/20 14:04 Urine Protein 4+ (NEGATIVE) 11/08/20 14:04 Urine Glucose (UA) Negative (NEGATIVE) 11/08/20 14:04 Urine Ketones Negative (NEGATIVE) 11/08/20 14:04 Urine Occult Blood 4+ (NEGATIVE) 11/08/20 14:04 Urine Nitrite Negative (NEGATIVE) 11/08/20 14:04 Urine Bilirubin Negative (NEGATIVE) 11/08/20 14:04 Urine Urobilinogen Normal (NORMAL) 11/08/20 14:04 Ur Leukocyte Esterase Negative (NEGATIVE) 11/08/20 14:04 Urine RBC 10-20 /HPF (0-3) A 11/08/20 14:04 Urine WBC None seen /HPF (0-5) 11/08/20 14:04 Ur Squamous Epith Cells Rare /HPF (NEGATIVE) 11/08/20 14:04 Urine Bacteria 2+ /HPF (NEGATIVE) 11/08/20 14:04 Fine Granular Casts Few /LPF (NEGATIVE) 11/08/20 14:04 Ur Culture Indicated? Yes/culture set up 11/08/20 14:04 SARS CoV-2 RNA Rapid GALINDO Negative (NEGATIVE) 11/08/20 14:21 Reason For Visit: ACUTE COPD EXACERBATION (FAILED OUTPATIENT THERAPY Discharge Date Discharge Date: 11/11/20 Discharge Diagnosis All Active Problems (Updated 11/11/20 @ 11:37 by Lennie Christian) Anemia (Acute) Thrombocytopenia (Acute) Lethargy (Acute) Hypermagnesemia (Acute) Hyperkalemia (Acute) Metabolic acidosis (Acute) ATN (acute tubular necrosis) (Acute) Urinary tract infection due to Klebsiella species (Acute) Acute respiratory failure with hypoxia and hypercapnia (Acute) HTN (hypertension) (Acute) Pneumonia (Acute) COPD exacerbation (Acute) Chronic kidney disease (CKD) (Chronic) Cardiomegaly (Chronic) Plan of Treatment: Continue with present treatment and follow up plan. Pt is to keep follow up appointment as instructed and take medications as ordered. Discharge Medications Discharge Medications: fluticasone furoate [From Trelegy Ellipta] Allergy (Verified 11/08/20 15:02) levofloxacin Allergy (Verified 11/08/20 14:05) Penicillins Allergy (Verified 11/08/20 14:05) umeclidinium [From Trelegy Ellipta] Allergy (Verified 11/08/20 15:02) vilanterol [From Trelegy Ellipta] Allergy (Verified 11/08/20 15:02) vancomycin Adverse Reaction (Verified 11/08/20 14:05) CONTINUE taking the following medications albuterol sulfate [Ventolin HFA] 1 inh INHALATION BID PRN 11/08/20 [History] aspirin [Aspir-81] 81 mg PO DAILY 11/08/20 [History] benzonatate 200 mg PO TID PRN 11/08/20 [History] hydrocodone-acetaminophen 1 tab PO BID PRN 11/08/20 [History] hydrocodone-chlorpheniramine [Tussionex] 5 ml PO BID PRN 11/08/20 [History] prednisone 20 mg PO BID 11/08/20 [History] promethazine [Phenergan] 25 mg PO QID PRN 11/08/20 [History] rosuvastatin 40 mg PO HS 11/08/20 [History] Discharge Disposition Discharge Disposition: [facility] Discharge Condition: Stable Discharge Plan Discharge Plan Hospital Course: Ms Bueno is a 65y/o female with Severe COPD on home O2 2-3L , HTN, anxiety , GERD and HLD presented with worsening dyspnea. Patient was seen in the ED on 11/06/20 for COPD exacerbation and treated as outpatient. She presented again on 11/08/20 with lethargy and worsening dyspnea. Patient was placed on BiPAP overnight due to hypercapnia. at bedside. Denies sick contact or exposure. Denies fever or chills. No GI Sx. reports patient has had a poor appetite for over a week, not been eating due to cough and SOB. On admission, patient had elevated WBC. She also had elevated Creatinine at 1.54, negative d-dimer and COVID. ABG was suggestive of hypoxia with hypercapnia. CXR was negative for infection or effusion. UA was suggestive of infection and culture was sent. She was started on azithromycin and IV Rocephin along with solumedrol and bronchodilators. She was also started on hydration with normal saline. Patient was placed back on nasal cannula the following day but continued to have hypercapnia so she was on BiPAP prn. Urine culture grew Klebseilla pna. Patient's renal function continued to worsen during her stay. Patient had elevated BNP and appeared to have some LE edema so IVF were stopped and she was given IV lasix. Patient's urine output was very low. Patient has poor IV access so gen surgery was consulted for central line placement. She had right femoral line placed. Her ABG continued to show acidosis even with improvement in CO2 likely a combination of respiratory and metabolic. Patient needs higher level of care with nephrology evaluation for dialysis. Patient's potassium was 5.6 and she was given IV insulin + D50. Patient's WBC elevated could be 2/2 to steroids, patient was afebrile. Patient's vitals remained stable. She was saturating more than 90%. Patient was stable for transfer. Hand off was given to critical care provider at [facility] and patient will be transferred there. Time spent for clinical assessment, reviewing labs/imaging, physical exam, de cision making and coordinating care with another provider and documentation greater than 75 mins. Patient Disposition: 02 XF [facility] Condition: Stable Health Concerns: Post Hospitalization: new medications and changes needed to prevent readmission or further decline. Pt educated and given instructions on all concerns. Plan of Treatment: Continue with present treatment and follow up plan. Pt is to keep follow up appointment as instructed and take medications as ordered. Prescriptions: No Action valsartan 80 mg Tablet 80 mg PO TID RF: 0 lorazepam 0.5 mg Tablet 0.5 mg PO TID PRN (Reason: Anxiety) RF: 0 diltiazem HCl 120 mg capsule,extended release 24 hr 120 mg PO DAILY RF: 0 pantoprazole 40 mg Tablet,Delayed Release (Dr/Ec) 40 mg PO QAM RF: 0 metoprolol succinate 25 mg Tablet Extended Release 24 Hr 25 mg PO BID RF: 0 zolpidem [Ambien] 10 mg Tablet 10 mg PO QHS RF: 0 albuterol sulfate 90 mcg/actuation aerosol powdr breath activated 2 inh inhalation Q6H PRNQty: 1 RF: 0 benzonatate 200 mg Capsule 200 mg PO TID PRNRF: 0 hydrocodone-acetaminophen 5-325 mg Tablet 1 tab PO BID PRNRF: 0 prednisone 20 mg Tablet 20 mg PO BID RF: 0 aspirin [Aspir-81] 81 mg Tablet,Delayed Release (Dr/Ec) 81 mg PO DAILY RF: 0 promethazine [Phenergan] 25 mg Tablet 25 mg PO QID PRNRF: 0 albuterol sulfate [Ventolin HFA] 90 mcg/actuation Hfa Aerosol Inhaler 1 inh INHALATION BID PRN (Reason: PRN) RF: 0 rosuvastatin 40 mg Tablet 40 mg PO HS RF: 0 Tussionex Suspension,Extended Rel 12 Hr 5 ml PO BID PRN (Reason: PRN) RF: 0 Orders to Discharge Patient Discharge Orders: Discharge by Transfer to Outside Facility (Routine); Ordered 11/11/20 Ordered By: Lennie Christian Follow ups/Referrals Follow ups/Referrals: SAVAGE RAMOS [Primary Care Provider] - 3 days Instructions Stand Alone Forms: Excuse From Work or School, Precautions for COVID19, Patient Portal, Social Distancing
[2020-11-11] MEDS: ROCEPHIN VIAL 1 GRAM 1 G in NS 100 ML IV + SPIKE MINIBAG* 100 ML IV SCH (12:26)
== END 2020-11-11 12:45 | disposition short-term general hospital (02) | DRG 190 ==
LOC: ER 13:40 → MED/SURG 14:53
PROVIDERS: ADMIT Internal Medicine; ATTEND Internal Medicine
DX: J96.01 Acute respiratory failure with hypoxia; N39.0 Urinary tract infection, site not specified; I25.10 Atherosclerotic heart disease of native coronary artery without angina pectoris; N18.30 Chronic kidney disease, stage 3 unspecified; D64.9 Anemia, unspecified; N17.0 Acute kidney failure with tubular necrosis; Z99.81 Dependence on supplemental oxygen; Z20.822 Contact with and (suspected) exposure to COVID-19; D69.6 Thrombocytopenia, unspecified; J96.02 Acute respiratory failure with hypercapnia; R06.02 Shortness of breath; B96.1 Klebsiella pneumoniae [K. pneumoniae] as the cause of diseases classified elsewhere; R60.1 Generalized edema; I87.2 Venous insufficiency (chronic) (peripheral); J44.1 Chronic obstructive pulmonary disease with (acute) exacerbation; I13.10 Hypertensive heart and chronic kidney disease without heart failure, with stage 1 through stage 4 chronic kidney disease, or unspecified chronic kidney disease; E83.41 Hypermagnesemia; E87.5 Hyperkalemia; R53.83 Other fatigue; K21.9 Gastro-esophageal reflux disease without esophagitis; E87.2 Acidosis; E66.01 Morbid (severe) obesity due to excess calories